=== PATIENT | female | born 1975 | race Caucasian/White ===

== ENCOUNTER 2022-06-09 18:11 | Inpatient (IN) ==
[2022-06-09] MEDS ORDERED: Melatonin 3 MG TABLET PO PRN (21:51)
[2022-06-09] MEDS ORDERED: Naloxone 0.4 MG/ML INJ IVP PRN (21:51)
[2022-06-09] MEDS ORDERED: Ondansetron 4 MG/2 ML VIAL IVP PRN (21:51)
[2022-06-09] MEDS ORDERED: *HR* LORazepam 2 MG/ML VIAL IVP PRN ×2 (21:53)
[2022-06-09] MEDS: Pantoprazole 40 MG in 0.9 % Sodium Chloride Mini Bag 100 ML IVC SCH (23:00)
[2022-06-09 23:12] LABS: Hematocrit 20.1 % (35.3-44.9); Hemoglobin 6.6 g/dL (11.5-15.4); Mean Corpuscular HGB Conc 32.8 g/dL (31.6-35.5); Mean Corpuscular Hemoglobin 30.8 pg (28.0-33.3); Mean Corpuscular Volume 93.9 fL (83.0-100.0); Platelet Count 270 K/mcL (140-400); Red Blood Count 2.14 M/mcL (3.82-4.97); Red Cell Distribution Width 16.9 % (11.5-14.5); White Blood Count 7.8 K/mcL (4.3-11.1)
[2022-06-09 23:36] LABS: Alanine Aminotransferase 13 Units/L (7-52); Albumin 2.5 g/dL (3.5-5.7); Albumin/Globulin Ratio 0.7 (1.1-2.2); Alkaline Phosphatase 146 Units/L (34-104); Aspartate Amino Transferase 55 Units/L (13-39); BUN/Creatinine Ratio 22 (6-26); Bilirubin,Direct 2.1 mg/dL (0.0-0.2); Bilirubin,Indirect 1.7 mg/dL (0.0-1.0); Bilirubin,Total 3.8 mg/dL (0.3-1.0); Blood Urea Nitrogen 10 mg/dL (6-20); Calcium 7.1 mg/dL (8.6-10.3); Carbon Dioxide 26 mEq/L (23-29); Chloride 87 mEq/L (98-107); Globulin 3.4 g/dL (2.4-3.5); Glucose 107 mg/dL (70-105); Magnesium 2.2 mg/dL (1.6-2.6); Osmolality,Calculated 274 (280-300); Phosphorous 1.9 mg/dL (2.7-4.5); Potassium 2.1 mEq/L (3.5-5.1); Sodium 132 mEq/L (136-145); Total Protein 5.9 g/dL (6.4-8.9); eGFR For African Americans > 60 (> 60); eGFR For Non-African Americans > 60 (> 60)
[2022-06-10] MEDS: 0.9 % Sodium Chloride w KCl 40 MEQ/1,000 ML MLS IVC SCH ×3 (00:49→16:44)
[2022-06-10] MEDS: Pantoprazole 40 MG in 0.9 % Sodium Chloride Mini Bag 100 ML IVC SCH (03:50)
[2022-06-10] MEDS ORDERED: Potassium Phosphate 44 MEQ in 0.9 % Sodium Chloride 250 ML IVPB ONE ×2 (04:19→08:06)
[2022-06-10] MEDS ORDERED: 0.9 % Sodium Chloride 250 ML IVC SCH (04:30)
[2022-06-10 06:38] LABS: Hemoglobin 6.7 g/dL (11.5-15.4); Immature Reticulocyte % 7.3 % (11.0-38.0); Mean Corpuscular HGB Conc 33.5 g/dL (31.6-35.5); Mean Corpuscular Volume 92.6 fL (83.0-100.0); Platelet Count 265 K/mcL (140-400); Red Blood Count 2.16 M/mcL (3.82-4.97); Red Cell Distribution Width 17.1 % (11.5-14.5); Retculocyte # 0.01 M/mcL (0.05-0.10); Reticulocyte % 0.5 % (1.6-2.8)
[2022-06-10 06:49] LABS: Alanine Aminotransferase 14 Units/L (7-52); Albumin 2.4 g/dL (3.5-5.7); Albumin/Globulin Ratio 0.8 (1.1-2.2); Alkaline Phosphatase 138 Units/L (34-104); Aspartate Amino Transferase 53 Units/L (13-39); BUN/Creatinine Ratio 20 (6-26); Bilirubin,Total 3.4 mg/dL (0.3-1.0); Blood Urea Nitrogen 9 mg/dL (6-20); Carbon Dioxide 27 mEq/L (23-29); Chloride 89 mEq/L (98-107); Globulin 3.1 g/dL (2.4-3.5); Glucose 95 mg/dL (70-105); Osmolality,Calculated 276 (280-300); Sodium 134 mEq/L (136-145); Total Protein 5.5 g/dL (6.4-8.9); eGFR For African Americans > 60 (> 60); eGFR For Non-African Americans > 60 (> 60)
[2022-06-10 07:30] LABS: Troponin I 0.05 ng/mL (< 0.04)
[2022-06-10] MEDS: *HR* LORazepam 2 MG/ML VIAL IVP PRN ×2 (08:57→16:43)
[2022-06-10] MEDS ORDERED: Potassium Phosphate 44 MEQ in 0.9 % Sodium Chloride 250 ML IVPB PRN (08:58)
[2022-06-10 09:52] LABS: Basophils % 0.3 %; Eosinophils # 0.1 K/mcL (0.0-0.6); Eosinophils % 0.7 %; Hematocrit 21.4 % (35.3-44.9); Hemoglobin 7.3 g/dL (11.5-15.4); Immature Granulocytes % 1.3 % (0-4); Lymphocytes # 1.3 K/mcL (0.6-4.6); Lymphocytes % 17.5 %; Mean Corpuscular HGB Conc 34.1 g/dL (31.6-35.5); Mean Corpuscular Hemoglobin 30.4 pg (28.0-33.3); Mean Corpuscular Volume 89.2 fL (83.0-100.0); Mean Platelet Volume 10.2 fL (9.4-12.4); Monocytes # 0.2 K/mcL (0.0-1.3); Neutrophils # 5.9 K/mcL (1.6-8.9); Nucleated Red Blood Cells 0.4 /100 WBC (0); Platelet Count 233 K/mcL (140-400); Red Cell Distribution Width 15.9 % (11.5-14.5); Segmented Neutrophils % 77.2 %; White Blood Count 7.6 K/mcL (4.3-11.1)
[2022-06-10 09:53] LABS: INR 1.1; Prothrombin Time 12.7 Seconds (9.4-12.1)
[2022-06-10 10:16] LABS: BUN/Creatinine Ratio 17 (6-26); Blood Urea Nitrogen 8 mg/dL (6-20); Calcium 6.7 mg/dL (8.6-10.3); Carbon Dioxide 27 mEq/L (23-29); Chloride 96 mEq/L (98-107); Glucose 96 mg/dL (70-105); Osmolality,Calculated 284 (280-300); Potassium 2.2 mEq/L (3.5-5.1); Sodium 138 mEq/L (136-145); eGFR For African Americans > 60 (> 60); eGFR For Non-African Americans > 60 (> 60)
[2022-06-10] MEDS: Azithromycin 500 MG in D5% in Water 250 ML IVPB SCH (10:35)
[2022-06-10 11:40] LABS: % Iron Saturation 91 % (15-50); Iron 163 mcg/dL (50-170); Transferrin 128 mg/dL (203-362)
[2022-06-10 11:41] LABS: Troponin I < 0.03 ng/mL (< 0.04)
[2022-06-10 14:10] LABS: Hepatitis B Surface Antigen Nonreactive (Nonreactive)
[2022-06-10 14:39] LABS: Hepatitis C Virus Antibody Nonreactive (Nonreactive)
[2022-06-10 14:40] LABS: Hepatitis B Core IgM Nonreactive (Nonreactive)
[2022-06-10 14:41] LABS: Hepatitis A Antibody IgM Nonreactive (Nonreactive)
[2022-06-10 15:11] LABS: Hematocrit 21.7 % (35.3-44.9); Hemoglobin 7.5 g/dL (11.5-15.4)
[2022-06-10 15:31] LABS: Potassium 2.6 mEq/L (3.5-5.1)
[2022-06-10 15:44] LABS: Magnesium 2.1 mg/dL (1.6-2.6); Phosphorous 2.9 mg/dL (2.7-4.5)
[2022-06-10 15:54] LABS: Potassium,Urine 47.2 mEq/L; Sodium, Urine 22.1 mEq/L
[2022-06-10 16:01] LABS: Bacteria,Urine Few per hpf (None-Few); Bilirubin,Urine Small (Negative); Blood,Urine Negative (Negative); Clarity,Urine Turbid (Clear); Color,Urine Dark-Yellow (Yellow); Glucose,Urine (UA) Normal (Normal); Ketones,Urine 150 mg/dL (Negative); Leukocyte Esterase,Urine Negative (Negative); Mucus,Urine Few per lpf (None-Few); Nitrite,Urine Negative (Negative); PH,Urine 6.5 pH Units (5.0-8.0); Protein,Urine 30 mg/dL (Neg-Trace); RBC,Urine 0-3 per hpf (0-3); Specific Gravity,Urine 1.022 (1.010-1.025); Squamous Epithelial Cell,Urine Few per hpf (None-Few); Urobilinogen,Urine >=8.0 mg/dL (Normal)
[2022-06-10] MEDS ORDERED: cefTRIAXone 1,000 MG in 0.9 % Sodium Chloride 10 ML IVP ONE ×2 (16:28→18:00)
[2022-06-10 16:40] LABS: ABG Base Excess 2 mEq/L (-2 to 3); ABG HCO3 25 mEq/L (21-27); ABG Oxygen Saturation 96 % (95-98); ABG PCO2 28 mmHg (35-45); ABG PH 7.55 pH Units (7.32-7.45); ABG PO2 69 mmHg (85-104); ABG TCO2 25 mEq/L (20-26)
[2022-06-10] MEDS: Thiamine (B-1) 100 MG, Folic Acid 1 MG, MVI, adult with vitamin K 10 ML in 0.9 % Sodi... IVPB SCH (17:21)
[2022-06-10] MEDS: Pantoprazole 40 MG VIAL IVP SCH (17:21)
[2022-06-10 17:31] LABS: Adenovirus Not Detected (Not Detect); Bordetella Pertussis Not Detected (Not Detect); Chlamydophila pneumoniae Not Detected (Not Detect); Coronavirus 229E Not Detected (Not Detect); Coronavirus HKU1 Not Detected (Not Detect); Coronavirus NL63 Not Detected (Not Detect); Coronavirus OC43 Not Detected (Not Detect); Human Metapneumovirus Not Detected (Not Detect); Human Rhinovirus/Enterovirus Not Detected (Not Detect); Influenza A Subtype 2009 H1 Not Detected (Not Detect); Influenza B Not Detected (Not Detect); Mycoplasma pneumoniae Not Detected (Not Detect); Parainfluenza Virus 1 Not Detected (Not Detect); Parainfluenza Virus 2 Not Detected (Not Detect); Parainfluenza Virus 3 Not Detected (Not Detect); Parainfluenza Virus 4 Not Detected (Not Detect); Respiratory Syncytial Virus Not Detected (Not Detect); SARS-CoV-2 Not Detected (Not Detect)
[2022-06-10 21:58] LABS: BUN/Creatinine Ratio 21 (6-26); Blood Urea Nitrogen 7 mg/dL (6-20); Calcium 6.2 mg/dL (8.6-10.3); Carbon Dioxide 26 mEq/L (23-29); Chloride 107 mEq/L (98-107); Glucose 95 mg/dL (70-105); Osmolality,Calculated 292 (280-300); Potassium 4.5 mEq/L (3.5-5.1); Sodium 142 mEq/L (136-145); eGFR For African Americans > 60 (> 60); eGFR For Non-African Americans > 60 (> 60)
[2022-06-11] MEDS ORDERED: 0.9 % Sodium Chloride 1,000 ML IVC SCH (00:15)
[2022-06-11 01:15] LABS: Basophils % 0.4 %; Eosinophils # 0.2 K/mcL (0.0-0.6); Eosinophils % 2.4 %; Hematocrit 23.1 % (35.3-44.9); Hemoglobin 7.8 g/dL (11.5-15.4); Immature Granulocytes % 2.2 % (0-4); Lymphocytes # 2.1 K/mcL (0.6-4.6); Mean Corpuscular HGB Conc 33.8 g/dL (31.6-35.5); Mean Corpuscular Hemoglobin 31.1 pg (28.0-33.3); Monocytes # 0.3 K/mcL (0.0-1.3); Monocytes % 4.8 %; Neutrophils # 3.9 K/mcL (1.6-8.9); Nucleated Red Blood Cells 0.3 /100 WBC (0); Platelet Count 189 K/mcL (140-400); Red Blood Count 2.51 M/mcL (3.82-4.97); Segmented Neutrophils % 58.2 %; White Blood Count 6.7 K/mcL (4.3-11.1)
[2022-06-11 01:37] LABS: BUN/Creatinine Ratio 18 (6-26); Blood Urea Nitrogen 7 mg/dL (6-20); Calcium 6.1 mg/dL (8.6-10.3); Carbon Dioxide 28 mEq/L (23-29); Chloride 107 mEq/L (98-107); Glucose 81 mg/dL (70-105); Osmolality,Calculated 289 (280-300); Phosphorous 2.1 mg/dL (2.7-4.5); Potassium 3.5 mEq/L (3.5-5.1); Sodium 141 mEq/L (136-145); eGFR For African Americans > 60 (> 60); eGFR For Non-African Americans > 60 (> 60)
[2022-06-11] MEDS: Azithromycin 500 MG in D5% in Water 250 ML IVPB SCH (05:30)
[2022-06-11] MEDS: *HR* LORazepam 2 MG/ML VIAL IVP PRN ×3 (06:10→16:43)
[2022-06-11] MEDS ORDERED: Morphine Sulfate 2 MG/ML SYRINGE IVP ONE (06:39)
[2022-06-11] MEDS ORDERED: Furosemide 20 MG/2 ML VIAL IVP ONE ×2 (06:44→08:06)
[2022-06-11] MEDS: Pantoprazole 40 MG VIAL IVP SCH ×2 (06:45→17:48)
[2022-06-11 07:54] LABS: ABG Base Excess 0 mEq/L (-2 to 3); ABG HCO3 24 mEq/L (21-27); ABG Oxygen Saturation 99 % (95-98); ABG PCO2 34 mmHg (35-45); ABG PH 7.46 pH Units (7.32-7.45); ABG PO2 132 mmHg (85-104); ABG TCO2 25 mEq/L (20-26); Blood Gas Modality NIV; Blood Gas VT 500 cc
[2022-06-11] MEDS: methylPREDNISolone 125 MG/2 ML VIAL IVP SCH (08:19)
[2022-06-11] MEDS ORDERED: Calcium Gluconate 1gm/50mL 1 GM/50 ML BAG IVPB ONE (08:44)
[2022-06-11 08:51] LABS: BUN/Creatinine Ratio 20 (6-26); Blood Urea Nitrogen 7 mg/dL (6-20); Calcium 6.5 mg/dL (8.6-10.3); Carbon Dioxide 26 mEq/L (23-29); Chloride 106 mEq/L (98-107); Glucose 76 mg/dL (70-105); Osmolality,Calculated 293 (280-300); Potassium 4.7 mEq/L (3.5-5.1); Sodium 143 mEq/L (136-145); eGFR For African Americans > 60 (> 60); eGFR For Non-African Americans > 60 (> 60)
[2022-06-11] MEDS: Piperacillin/Tazobactam 3.375 GM in 0.9 % Sodium Chloride Mini Bag 100 ML IVPB SCH ×2 (09:44→16:38)
[2022-06-11 12:33] LABS: Magnesium 1.8 mg/dL (1.6-2.6); Phosphorous 4.8 mg/dL (2.7-4.5)
[2022-06-11] MEDS ORDERED: Perflutren Lipid Microsphere 1.3 ML in 0.9 % Sodium Chloride 8.7 ML IVP PRN (13:40)
[2022-06-11] MEDS: Thiamine (B-1) 100 MG, Folic Acid 1 MG, MVI, adult with vitamin K 10 ML in 0.9 % Sodi... IVPB SCH (17:48)
[2022-06-12] MEDS ORDERED: D5% in Water 1,000 ML IVC PRN (00:54)
[2022-06-12] MEDS ORDERED: Dextrose Gel 15 GM/37.5 ML TUBE PO PRN ×2 (00:54)
[2022-06-12] MEDS: Piperacillin/Tazobactam 3.375 GM in 0.9 % Sodium Chloride Mini Bag 100 ML IVPB SCH ×3 (01:13→16:28)
[2022-06-12] MEDS: *HR* LORazepam 2 MG/ML VIAL IVP PRN ×4 (01:17→21:52)
[2022-06-12] MEDS: *HR* Dextrose 50 % in Water (Syg) 50 ML SYRINGE IVP PRN (01:19)
[2022-06-12] MEDS: Pantoprazole 40 MG VIAL IVP SCH ×2 (05:12→17:56)
[2022-06-12] MEDS: Azithromycin 500 MG in D5% in Water 250 ML IVPB SCH (05:12)
[2022-06-12] MEDS: methylPREDNISolone 125 MG/2 ML VIAL IVP SCH (08:34)
[2022-06-12 09:01] LABS: Basophils # 0.1 K/mcL (0.0-0.2); Basophils % 0.7 %; Eosinophils # 0.3 K/mcL (0.0-0.6); Hematocrit 21.3 % (35.3-44.9); Hemoglobin 7.1 g/dL (11.5-15.4); Immature Granulocytes % 3.8 % (0-4); Lymphocytes # 2.9 K/mcL (0.6-4.6); Lymphocytes % 26.6 %; Mean Corpuscular HGB Conc 33.3 g/dL (31.6-35.5); Mean Corpuscular Hemoglobin 30.9 pg (28.0-33.3); Mean Corpuscular Volume 92.6 fL (83.0-100.0); Mean Platelet Volume 10.6 fL (9.4-12.4); Monocytes # 0.5 K/mcL (0.0-1.3); Monocytes % 4.6 %; Neutrophils # 6.6 K/mcL (1.6-8.9); Nucleated Red Blood Cells 0.4 /100 WBC (0); Platelet Count 200 K/mcL (140-400); Red Cell Distribution Width 18.2 % (11.5-14.5); Segmented Neutrophils % 61.3 %
[2022-06-12 09:04] LABS: White Blood Count 10.8 K/mcL (4.3-11.1)
[2022-06-12 09:34] LABS: Alanine Aminotransferase 17 Units/L (7-52); Albumin 2.3 g/dL (3.5-5.7); Albumin/Globulin Ratio 0.8 (1.1-2.2); Alkaline Phosphatase 114 Units/L (34-104); Aspartate Amino Transferase 45 Units/L (13-39); BUN/Creatinine Ratio 12 (6-26); Bilirubin,Total 1.6 mg/dL (0.3-1.0); Blood Urea Nitrogen 5 mg/dL (6-20); Calcium 7.1 mg/dL (8.6-10.3); Carbon Dioxide 27 mEq/L (23-29); Chloride 107 mEq/L (98-107); Globulin 2.9 g/dL (2.4-3.5); Glucose 72 mg/dL (70-105); Osmolality,Calculated 298 (280-300); Potassium 3.4 mEq/L (3.5-5.1); Sodium 146 mEq/L (136-145); Total Protein 5.2 g/dL (6.4-8.9); eGFR For African Americans > 60 (> 60); eGFR For Non-African Americans > 60 (> 60)
[2022-06-12] MEDS: Ipratropium/Albuterol Neb 3 ML IH SCH ×3 (10:14→23:04)
[2022-06-12] MEDS ORDERED: Iopamidol - 370 500 ML MLS IVP ONE (10:40)
[2022-06-12] MEDS ORDERED: Furosemide 40 MG/4 ML VIAL IVP ONE (10:41)
[2022-06-12] MEDS ORDERED: Perflutren Lipid Microsphere 1.3 ML in 0.9 % Sodium Chloride 8.7 ML IVP PRN (12:20)
[2022-06-12 13:59] LABS: Phosphorous 1.8 mg/dL (2.7-4.5)
[2022-06-12 16:52] LABS: VBG Ionized Calcium 0.94 mmol/L (1.15-1.35)
[2022-06-12] MEDS: Thiamine (B-1) 100 MG, Folic Acid 1 MG, MVI, adult with vitamin K 10 ML in 0.9 % Sodi... IVPB SCH (17:56)
[2022-06-12] MEDS ORDERED: Calcium Gluconate 1gm/50mL 1 GM/50 ML BAG IVPB ONE (19:19)
[2022-06-13] MEDS: *HR* Dextrose 50 % in Water (Syg) 50 ML SYRINGE IVP PRN (00:57)
[2022-06-13] MEDS: Piperacillin/Tazobactam 3.375 GM in 0.9 % Sodium Chloride Mini Bag 100 ML IVPB SCH ×3 (00:58→17:19)
[2022-06-13] MEDS: *HR* LORazepam 2 MG/ML VIAL IVP PRN ×3 (02:42→10:53)
[2022-06-13] MEDS: Ipratropium/Albuterol Neb 3 ML IH SCH ×4 (03:46→21:13)
[2022-06-13] MEDS: Azithromycin 500 MG in D5% in Water 250 ML IVPB SCH (06:27)
[2022-06-13] MEDS: Pantoprazole 40 MG VIAL IVP SCH ×2 (06:27→17:14)
[2022-06-13 06:47] LABS: Basophils # 0.1 K/mcL (0.0-0.2); Basophils % 0.6 %; Eosinophils # 0.2 K/mcL (0.0-0.6); Eosinophils % 1.7 %; Hematocrit 22.5 % (35.3-44.9); Hemoglobin 7.2 g/dL (11.5-15.4); Immature Granulocytes % 4.7 % (0-4); Lymphocytes # 2.9 K/mcL (0.6-4.6); Lymphocytes % 28.2 %; Mean Corpuscular Hemoglobin 30.1 pg (28.0-33.3); Mean Corpuscular Volume 94.1 fL (83.0-100.0); Monocytes # 0.7 K/mcL (0.0-1.3); Monocytes % 7.3 %; Neutrophils # 5.8 K/mcL (1.6-8.9); Nucleated Red Blood Cells 1.1 /100 WBC (0); Platelet Count 221 K/mcL (140-400); Red Blood Count 2.39 M/mcL (3.82-4.97); Segmented Neutrophils % 57.5 %; White Blood Count 10.2 K/mcL (4.3-11.1)
[2022-06-13 06:55] LABS: INR 1.2; Prothrombin Time 13.8 Seconds (9.4-12.1)
[2022-06-13 08:31] LABS: Alanine Aminotransferase 17 Units/L (7-52); Albumin 2.5 g/dL (3.5-5.7); Albumin/Globulin Ratio 0.9 (1.1-2.2); Alkaline Phosphatase 103 Units/L (34-104); Aspartate Amino Transferase 37 Units/L (13-39); BUN/Creatinine Ratio 10 (6-26); Bilirubin,Total 1.5 mg/dL (0.3-1.0); Blood Urea Nitrogen 5 mg/dL (6-20); Calcium 7.9 mg/dL (8.6-10.3); Carbon Dioxide 29 mEq/L (23-29); Chloride 108 mEq/L (98-107); Globulin 2.8 g/dL (2.4-3.5); Glucose 80 mg/dL (70-105); Osmolality,Calculated 306 (280-300); Potassium 3.2 mEq/L (3.5-5.1); Sodium 150 mEq/L (136-145); Total Protein 5.3 g/dL (6.4-8.9); eGFR For African Americans > 60 (> 60); eGFR For Non-African Americans > 60 (> 60)
[2022-06-13] MEDS: Thiamine (B-1) 500 MG in 0.9 % Sodium Chloride 50 ML IVPB SCH ×3 (09:24→21:31)
[2022-06-13] MEDS: D5% in Water 1,000 ML IVC SCH (09:24)
[2022-06-13 09:31] LABS: Magnesium 1.6 mg/dL (1.6-2.6); Phosphorous 3.7 mg/dL (2.7-4.5)
[2022-06-13 10:02] LABS: ABG Base Excess 3 mEq/L (-2 to 3); ABG HCO3 25 mEq/L (21-27); ABG Oxygen Saturation 96 % (95-98); ABG PCO2 27 mmHg (35-45); ABG PH 7.58 pH Units (7.32-7.45); ABG PO2 69 mmHg (85-104); ABG TCO2 26 mEq/L (20-26)
[2022-06-13 11:52] LABS: Thyroid Stimulating Hormone 15.169 mcIU/mL (0.340-5.600)
[2022-06-13 13:25] LABS: Triiodothyronine (T3) Free 3.02 pg/mL (2.50-3.90)
[2022-06-13] MEDS ORDERED: Artificial Tears SOLN 15 ML BOTTLE BOTH EYES PRN (13:37)
[2022-06-13] MEDS ORDERED: *HR* Etomidate 20 MG/10 ML AMPUL IVP ONE (13:58)
[2022-06-13] MEDS ORDERED: *HR* Midazolam HCl 2 MG/2 ML VIAL IVP ONE (13:58)
[2022-06-13] MEDS ORDERED: *HR* Propofol 200 MG/20 ML VIAL IVP ONE (13:58)
[2022-06-13 14:12] LABS: Amorphous Sediment,Urine Few per hpf (None-Few); Bilirubin,Urine Small (Negative); Blood,Urine Trace (Negative); Clarity,Urine Ex.Turbid (Clear); Color,Urine Dark-Yellow (Yellow); Glucose,Urine (UA) Normal (Normal); Ketones,Urine 80 mg/dL (Negative); Leukocyte Esterase,Urine Moderate (Negative); Nitrite,Urine Negative (Negative); Protein,Urine 100 mg/dL (Neg-Trace); Specific Gravity,Urine > 1.030 (1.010-1.025)
[2022-06-13] MEDS: FentaNYL (PF) 1,000 MCG/100 ML IV.SOLN IVC SCH ×2 (14:58→21:55)
[2022-06-13] MEDS: Dexmedetomidine HCl 400 MCG/100 ML MLS IVC SCH (14:59)
[2022-06-13] MEDS: Artificial Tears SOLN 15 ML BOTTLE BOTH EYES SCH ×2 (15:54→21:33)
[2022-06-13 16:23] LABS: ABG Base Excess 6 mEq/L (-2 to 3); ABG HCO3 31 mEq/L (21-27); ABG Oxygen Saturation 100 % (95-98); ABG PCO2 50 mmHg (35-45); ABG PH 7.41 pH Units (7.32-7.45); ABG PO2 339 mmHg (85-104); ABG TCO2 33 mEq/L (20-26); Blood Gas Modality ASSIST CONTROL; Blood Gas VT 420 cc
[2022-06-13 16:55] LABS: VBG Ionized Calcium 0.92 mmol/L (1.15-1.35)
[2022-06-13] MEDS: Norepinephrine 4 MG/254 ML IV.SOLN IVC SCH (17:13)
[2022-06-13 17:14] LABS: Alanine Aminotransferase 14 Units/L (7-52); Albumin 2.3 g/dL (3.5-5.7); Albumin/Globulin Ratio 0.8 (1.1-2.2); Alkaline Phosphatase 92 Units/L (34-104); Aspartate Amino Transferase 33 Units/L (13-39); BUN/Creatinine Ratio 11 (6-26); Bilirubin,Total 1.4 mg/dL (0.3-1.0); Blood Urea Nitrogen 5 mg/dL (6-20); Calcium 7.5 mg/dL (8.6-10.3); Carbon Dioxide 29 mEq/L (23-29); Chloride 109 mEq/L (98-107); Globulin 2.8 g/dL (2.4-3.5); Glucose 122 mg/dL (70-105); Magnesium 1.6 mg/dL (1.6-2.6); Osmolality,Calculated 301 (280-300); Phosphorous 4.3 mg/dL (2.7-4.5); Potassium 3.2 mEq/L (3.5-5.1); Sodium 146 mEq/L (136-145); Total Protein 5.1 g/dL (6.4-8.9); eGFR For African Americans > 60 (> 60); eGFR For Non-African Americans > 60 (> 60)
[2022-06-13] MEDS: Chlorhexidine Rinse 15 ML MOUTHWASH MM SCH (21:31)
[2022-06-14] MEDS: Piperacillin/Tazobactam 3.375 GM in 0.9 % Sodium Chloride Mini Bag 100 ML IVPB SCH ×3 (00:59→16:10)
[2022-06-14] MEDS: D5% in Water 1,000 ML IVC SCH (00:59)
[2022-06-14] MEDS: Artificial Tears SOLN 15 ML BOTTLE BOTH EYES SCH ×6 (00:59→21:01)
[2022-06-14 03:00] LABS: Basophils # 0.1 K/mcL (0.0-0.2); Basophils % 0.8 %; Eosinophils # 0.3 K/mcL (0.0-0.6); Eosinophils % 2.7 %; Hematocrit 24.3 % (35.3-44.9); Hemoglobin 7.9 g/dL (11.5-15.4); Immature Granulocytes % 2.5 % (0-4); Immature Platelets 7.6 % (1.1-6.1); Lymphocytes % 16.2 %; Mean Corpuscular HGB Conc 32.5 g/dL (31.6-35.5); Mean Corpuscular Volume 95.3 fL (83.0-100.0); Mean Platelet Volume 10.7 fL (9.4-12.4); Monocytes # 0.8 K/mcL (0.0-1.3); Monocytes % 6.7 %; Neutrophils # 8.5 K/mcL (1.6-8.9); Nucleated Red Blood Cells 0.5 /100 WBC (0); Platelet Count 188 K/mcL (140-400); Red Blood Count 2.55 M/mcL (3.82-4.97); Red Cell Distribution Width 18.6 % (11.5-14.5); Segmented Neutrophils % 71.1 %
[2022-06-14 04:00] LABS: Alanine Aminotransferase 16 Units/L (7-52); Albumin 2.3 g/dL (3.5-5.7); Albumin/Globulin Ratio 0.7 (1.1-2.2); Alkaline Phosphatase 101 Units/L (34-104); Aspartate Amino Transferase 38 Units/L (13-39); BUN/Creatinine Ratio 7 (6-26); Bilirubin,Direct 0.3 mg/dL (0.0-0.2); Bilirubin,Indirect 1.1 mg/dL (0.0-1.0); Bilirubin,Total 1.4 mg/dL (0.3-1.0); Blood Urea Nitrogen 5 mg/dL (6-20); Calcium 7.6 mg/dL (8.6-10.3); Carbon Dioxide 28 mEq/L (23-29); Chloride 106 mEq/L (98-107); Globulin 3.1 g/dL (2.4-3.5); Glucose 123 mg/dL (70-105); Magnesium 1.5 mg/dL (1.6-2.6); Osmolality,Calculated 297 (280-300); Phosphorous 4.6 mg/dL (2.7-4.5); Potassium 3.9 mEq/L (3.5-5.1); Sodium 144 mEq/L (136-145); Total Protein 5.4 g/dL (6.4-8.9); eGFR For African Americans > 60 (> 60); eGFR For Non-African Americans > 60 (> 60)
[2022-06-14] MEDS: Dexmedetomidine HCl 400 MCG/100 ML MLS IVC SCH (04:18)
[2022-06-14] MEDS: Ipratropium/Albuterol Neb 3 ML IH SCH ×4 (04:35→22:48)
[2022-06-14 05:21] LABS: VBG Ionized Calcium 1.03 mmol/L (1.15-1.35)
[2022-06-14 05:28] LABS: ABG Base Excess 4 mEq/L (-2 to 3); ABG HCO3 28 mEq/L (21-27); ABG Oxygen Saturation 98 % (95-98); ABG PCO2 40 mmHg (35-45); ABG PH 7.45 pH Units (7.32-7.45); ABG PO2 93 mmHg (85-104); ABG TCO2 29 mEq/L (20-26); Blood Gas Modality ASSIST CONTROL; Blood Gas VT 420 cc
[2022-06-14] MEDS: Azithromycin 500 MG in D5% in Water 250 ML IVPB SCH (06:29)
[2022-06-14] MEDS: Pantoprazole 40 MG VIAL IVP SCH ×2 (06:29→16:09)
[2022-06-14] MEDS: Norepinephrine 4 MG/254 ML IV.SOLN IVC SCH (06:58)
[2022-06-14] MEDS: Chlorhexidine Rinse 15 ML MOUTHWASH MM SCH ×2 (08:00→21:02)
[2022-06-14 08:28] LABS: ANA IgG by ELISA NONE DETECTED (None Detected)
[2022-06-14] MEDS: Thiamine (B-1) 500 MG in 0.9 % Sodium Chloride 50 ML IVPB SCH ×3 (08:31→21:04)
[2022-06-14 08:36] LABS: Kappa Qnt Free Light Chains 33.08 mg/L (3.30-19.40); Lambda Qnt Free Light Chains 35.42 mg/L (5.71-26.30)
[2022-06-14] MEDS: Albumin 25% 25gram/100mL 25 GM/100 ML IV.SOLN IVPB SCH (16:09)
[2022-06-14] MEDS ORDERED: *HR* HYDROcodone/Acet 5/325 mg TABLET PO ONE (23:28)
[2022-06-15] MEDS: Piperacillin/Tazobactam 3.375 GM in 0.9 % Sodium Chloride Mini Bag 100 ML IVPB SCH ×3 (00:05→14:44)
[2022-06-15] MEDS: Albumin 25% 25gram/100mL 25 GM/100 ML IV.SOLN IVPB SCH ×3 (00:06→15:40)
[2022-06-15] MEDS: Artificial Tears SOLN 15 ML BOTTLE BOTH EYES SCH ×3 (00:08→07:23)
[2022-06-15] MEDS: Ipratropium/Albuterol Neb 3 ML IH SCH ×4 (03:43→22:54)
[2022-06-15 05:00] LABS: VBG Ionized Calcium 0.94 mmol/L (1.15-1.35)
[2022-06-15 05:09] LABS: Basophils # 0.1 K/mcL (0.0-0.2); Basophils % 0.6 %; Eosinophils # 0.3 K/mcL (0.0-0.6); Eosinophils % 3.3 %; Hematocrit 20.8 % (35.3-44.9); Hemoglobin 6.6 g/dL (11.5-15.4); Immature Granulocytes % 0.7 % (0-4); Lymphocytes # 1.2 K/mcL (0.6-4.6); Lymphocytes % 14.2 %; Mean Corpuscular HGB Conc 31.7 g/dL (31.6-35.5); Mean Corpuscular Hemoglobin 30.8 pg (28.0-33.3); Mean Corpuscular Volume 97.2 fL (83.0-100.0); Mean Platelet Volume 11.1 fL (9.4-12.4); Monocytes # 0.4 K/mcL (0.0-1.3); Monocytes % 4.9 %; Neutrophils # 6.5 K/mcL (1.6-8.9); Nucleated Red Blood Cells 0.2 /100 WBC (0); Platelet Count 133 K/mcL (140-400); Red Blood Count 2.14 M/mcL (3.82-4.97); Red Cell Distribution Width 18.8 % (11.5-14.5); Segmented Neutrophils % 76.3 %; White Blood Count 8.6 K/mcL (4.3-11.1)
[2022-06-15 05:28] LABS: Albumin 2.8 g/dL (3.5-5.7); Albumin/Globulin Ratio 1.2 (1.1-2.2); Bilirubin,Total 1.5 mg/dL (0.3-1.0); Calcium 8.1 mg/dL (8.6-10.3); Globulin 2.4 g/dL (2.4-3.5); Potassium 3.1 mEq/L (3.5-5.1); Total Protein 5.2 g/dL (6.4-8.9)
[2022-06-15 05:30] LABS: Albumin 2.9 g/dL (3.5-5.7); Albumin/Globulin Ratio 1.3 (1.1-2.2); Bilirubin,Direct 0.7 mg/dL (0.0-0.2); Bilirubin,Indirect 0.9 mg/dL (0.0-1.0); Bilirubin,Total 1.6 mg/dL (0.3-1.0); Globulin 2.2 g/dL (2.4-3.5); Magnesium 1.9 mg/dL (1.6-2.6); Phosphorous 5.1 mg/dL (2.7-4.5); Total Protein 5.1 g/dL (6.4-8.9)
[2022-06-15] MEDS: Pantoprazole 40 MG VIAL IVP SCH ×2 (05:31→17:32)
[2022-06-15] MEDS: Chlorhexidine Rinse 15 ML MOUTHWASH MM SCH (07:23)
[2022-06-15] MEDS: Thiamine (B-1) 500 MG in 0.9 % Sodium Chloride 50 ML IVPB SCH ×3 (07:26→20:04)
[2022-06-15 08:47] LABS: Hematocrit 21.6 % (35.3-44.9); Hemoglobin 6.8 g/dL (11.5-15.4); Mean Corpuscular HGB Conc 31.5 g/dL (31.6-35.5); Mean Corpuscular Hemoglobin 30.8 pg (28.0-33.3); Mean Corpuscular Volume 97.7 fL (83.0-100.0); Mean Platelet Volume 10.9 fL (9.4-12.4); Platelet Count 124 K/mcL (140-400); Red Blood Count 2.21 M/mcL (3.82-4.97); Red Cell Distribution Width 19.1 % (11.5-14.5); White Blood Count 8.4 K/mcL (4.3-11.1)
[2022-06-15] MEDS ORDERED: Benzonatate 100 MG CAPSULE PO PRN (08:55)
[2022-06-15] MEDS ORDERED: 0.9 % Sodium Chloride 500 ML ONE (09:15)
[2022-06-15 10:48] LABS: Alpha 2 Globulin (PEP) 0.75 g/dL (0.48-1.05); Beta Globulin (PEP) 0.85 g/dL (0.48-1.10)
[2022-06-15 10:57] LABS: IFE Reflexed NOT DONE
[2022-06-15] MEDS ORDERED: Furosemide 40 MG/4 ML VIAL IVP ONE (12:54)
[2022-06-15] MEDS ORDERED: Calcium Gluconate 1gm/50mL 1 GM/50 ML BAG IVPB PRN (12:56)
[2022-06-15] MEDS: Norepinephrine 4 MG/254 ML IV.SOLN IVC SCH (13:09)
[2022-06-15 14:41] LABS: Basophils # 0.1 K/mcL (0.0-0.2); Basophils % 0.6 %; Eosinophils # 0.3 K/mcL (0.0-0.6); Eosinophils % 2.8 %; Hemoglobin 8.8 g/dL (11.5-15.4); Immature Granulocytes % 0.9 % (0-4); Lymphocytes # 0.9 K/mcL (0.6-4.6); Lymphocytes % 8.3 %; Mean Corpuscular HGB Conc 32.6 g/dL (31.6-35.5); Mean Corpuscular Hemoglobin 30.9 pg (28.0-33.3); Mean Corpuscular Volume 94.7 fL (83.0-100.0); Mean Platelet Volume 11.6 fL (9.4-12.4); Monocytes # 0.5 K/mcL (0.0-1.3); Monocytes % 4.6 %; Neutrophils # 8.7 K/mcL (1.6-8.9); Nucleated Red Blood Cells 0.2 /100 WBC (0); Platelet Count 130 K/mcL (140-400); Red Blood Count 2.85 M/mcL (3.82-4.97); Red Cell Distribution Width 17.4 % (11.5-14.5); Segmented Neutrophils % 82.8 %; White Blood Count 10.5 K/mcL (4.3-11.1)
[2022-06-15 14:50] LABS: Calcium 8.4 mg/dL (8.6-10.3); Potassium 3.4 mEq/L (3.5-5.1)
[2022-06-15 14:51] LABS: Calcium 8.5 mg/dL (8.6-10.3); Potassium 3.5 mEq/L (3.5-5.1)
[2022-06-15 21:06] LABS: Magnesium 2.5 mg/dL (1.6-2.6)
[2022-06-16] MEDS ORDERED: Bumetanide 1 MG/4 ML VIAL IVP ONE (00:15)
[2022-06-16] MEDS: Piperacillin/Tazobactam 3.375 GM in 0.9 % Sodium Chloride Mini Bag 100 ML IVPB SCH ×3 (00:25→20:13)
[2022-06-16] MEDS: Albumin 25% 25gram/100mL 25 GM/100 ML IV.SOLN IVPB SCH ×3 (00:25→15:53)
[2022-06-16] MEDS: Ipratropium/Albuterol Neb 3 ML IH SCH ×4 (04:49→22:42)
[2022-06-16] MEDS: Pantoprazole 40 MG VIAL IVP SCH ×2 (05:22→18:14)
[2022-06-16 06:13] LABS: Bacteria,Urine Few per hpf (None-Few); Bilirubin,Urine Negative (Negative); Blood,Urine Trace (Negative); Clarity,Urine Clear (Clear); Color,Urine Light-Yellow (Yellow); Glucose,Urine (UA) Normal (Normal); Ketones,Urine Trace mg/dL (Negative); Leukocyte Esterase,Urine Negative (Negative); Mucus,Urine Few per lpf (None-Few); Nitrite,Urine Negative (Negative); Protein,Urine 30 mg/dL (Neg-Trace); RBC,Urine 0-3 per hpf (0-3); Squamous Epithelial Cell,Urine Few per hpf (None-Few); Urobilinogen,Urine Normal (Normal)
[2022-06-16 06:26] LABS: VBG Ionized Calcium 1.07 mmol/L (1.15-1.35)
[2022-06-16] MEDS: Thiamine (B-1) 500 MG in 0.9 % Sodium Chloride 50 ML IVPB SCH (08:04)
[2022-06-16 08:12] LABS: Albumin 3.8 g/dL (3.5-5.7); Bilirubin,Total 2.6 mg/dL (0.3-1.0); Calcium 9.2 mg/dL (8.6-10.3); Globulin 1.9 g/dL (2.4-3.5); Potassium 3.3 mEq/L (3.5-5.1); Total Protein 5.7 g/dL (6.4-8.9)
[2022-06-16 08:19] LABS: Albumin 3.8 g/dL (3.5-5.7); Albumin/Globulin Ratio 1.8 (1.1-2.2); Bilirubin,Direct 1.4 mg/dL (0.0-0.2); Bilirubin,Indirect 1.1 mg/dL (0.0-1.0); Bilirubin,Total 2.5 mg/dL (0.3-1.0); Globulin 2.1 g/dL (2.4-3.5); Magnesium 2.4 mg/dL (1.6-2.6); Phosphorous 4.5 mg/dL (2.7-4.5); Total Protein 5.9 g/dL (6.4-8.9)
[2022-06-16 09:10] LABS: Basophils # 0.1 K/mcL (0.0-0.2); Basophils % 0.6 %; Eosinophils # 0.2 K/mcL (0.0-0.6); Eosinophils % 1.7 %; Hematocrit 28.1 % (35.3-44.9); Hemoglobin 9.2 g/dL (11.5-15.4); Immature Granulocytes % 1.7 % (0-4); Lymphocytes # 0.9 K/mcL (0.6-4.6); Mean Corpuscular HGB Conc 32.7 g/dL (31.6-35.5); Mean Corpuscular Hemoglobin 31.1 pg (28.0-33.3); Mean Corpuscular Volume 94.9 fL (83.0-100.0); Mean Platelet Volume 11.3 fL (9.4-12.4); Monocytes # 0.5 K/mcL (0.0-1.3); Neutrophils # 10.8 K/mcL (1.6-8.9); Nucleated Red Blood Cells 0.2 /100 WBC (0); Platelet Count 138 K/mcL (140-400); Red Blood Count 2.96 M/mcL (3.82-4.97); White Blood Count 12.7 K/mcL (4.3-11.1)
[2022-06-16 09:28] LABS: Calcium 9.2 mg/dL (8.6-10.3); Potassium 3.4 mEq/L (3.5-5.1)
[2022-06-16] MEDS ORDERED: Lidocaine -MPF 1% 5 ML AMPUL INFILT ONE (12:09)
[2022-06-16] MEDS ORDERED: Potassium Chloride 40 MEQ/200 ML BAG IVPB PRN (12:16)
[2022-06-16] MEDS: Insulin LISPRO 300 UNITS/3 ML VIAL SUBQ SCH ×2 (12:28→15:53)
[2022-06-16] MEDS: Norepinephrine 4 MG/254 ML IV.SOLN IVC SCH (12:29)
[2022-06-16 13:32] LABS: Calcium 9.2 mg/dL (8.6-10.3); Potassium 3.4 mEq/L (3.5-5.1)
[2022-06-16] MEDS ORDERED: D10% in Water 500 ML IVC PRN (13:41)
[2022-06-16 13:57] LABS: Sodium, Urine 96.4 mEq/L
[2022-06-16] MEDS ORDERED: Clinimix E 5%-15% SOLUTION 2,000 ML with MVI, adult with vitamin K 10 ML IVC SCH (17:00)
[2022-06-16 18:51] LABS: VBG Ionized Calcium 1.13 mmol/L (1.15-1.35)
[2022-06-16 19:05] LABS: Calcium 9.5 mg/dL (8.6-10.3); Magnesium 3.1 mg/dL (1.6-2.6); Phosphorous 4.3 mg/dL (2.7-4.5); Potassium 3.9 mEq/L (3.5-5.1)
[2022-06-16] MEDS: Levalbuterol Neb 1.25 MG/3 ML IH SCH (22:57)
[2022-06-16 23:11] LABS: Uric Acid 6.1 mg/dL (2.3-7.6)
[2022-06-17] MEDS: Levalbuterol Neb 1.25 MG/3 ML IH SCH ×4 (03:58→22:37)
[2022-06-17] MEDS: Insulin LISPRO 300 UNITS/3 ML VIAL SUBQ SCH ×4 (05:56→16:26)
[2022-06-17 06:16] LABS: VBG Ionized Calcium 1.14 mmol/L (1.15-1.35)
[2022-06-17] MEDS: Pantoprazole 40 MG VIAL IVP SCH ×2 (06:37→16:37)
[2022-06-17] MEDS: Norepinephrine 4 MG/254 ML IV.SOLN IVC SCH (07:05)
[2022-06-17 07:38] LABS: Basophils # 0.1 K/mcL (0.0-0.2); Basophils % 0.5 %; Eosinophils # 0.3 K/mcL (0.0-0.6); Eosinophils % 2.2 %; Hematocrit 28.3 % (35.3-44.9); Hemoglobin 9.2 g/dL (11.5-15.4); Immature Granulocytes % 1.6 % (0-4); Lymphocytes % 8.3 %; Mean Corpuscular HGB Conc 32.5 g/dL (31.6-35.5); Mean Corpuscular Hemoglobin 31.3 pg (28.0-33.3); Mean Platelet Volume 11.2 fL (9.4-12.4); Monocytes # 0.4 K/mcL (0.0-1.3); Monocytes % 3.8 %; Neutrophils # 9.7 K/mcL (1.6-8.9); Platelet Count 157 K/mcL (140-400); Red Blood Count 2.94 M/mcL (3.82-4.97); Red Cell Distribution Width 19.7 % (11.5-14.5); Segmented Neutrophils % 83.6 %; White Blood Count 11.6 K/mcL (4.3-11.1)
[2022-06-17 07:44] LABS: Mean Corpuscular Volume 96.3 fL (83.0-100.0)
[2022-06-17] MEDS: Piperacillin/Tazobactam 3.375 GM in 0.9 % Sodium Chloride Mini Bag 100 ML IVPB SCH (07:45)
[2022-06-17] MEDS: *HR* Dextrose 50 % in Water (Syg) 50 ML SYRINGE IVP PRN ×2 (07:50→09:55)
[2022-06-17 09:36] LABS: Albumin 3.7 g/dL (3.5-5.7); Albumin/Globulin Ratio 1.8 (1.1-2.2); Bilirubin,Total 1.5 mg/dL (0.3-1.0); Calcium 9.2 mg/dL (8.6-10.3); Globulin 2.1 g/dL (2.4-3.5); Magnesium 2.8 mg/dL (1.6-2.6); Phosphorous 2.9 mg/dL (2.7-4.5); Total Protein 5.8 g/dL (6.4-8.9)
[2022-06-17] MEDS ORDERED: *HR* Labetalol 20 MG/4 ML SYRINGE IVP PRN (10:56)
[2022-06-17] MEDS ORDERED: D10% in Water 500 ML IVC SCH (11:00)
[2022-06-17] MEDS: D10% in Water 500 ML IVC SCH ×2 (11:00→23:51)
[2022-06-17 14:34] LABS: RBC,Pleural Fluid < 2000 RBC/mcL
[2022-06-17 14:34] LABS: RBC,Pleural Fluid < 2000 RBC/mcL
[2022-06-17 15:27] LABS: Glucose,Pleural Fluid 96 mg/dL (No Ref Range); LDH,Pleural Fluid 97 Units/L (No Ref Range); Total Protein,Pleural Fluid < 2.0 g/dL
[2022-06-17 15:32] LABS: Appearance of Pleural Fl Clear (Clear); Basophils,Pleural Fluid 0 %; Eosinophils,Pleural Fluid 0 %
[2022-06-17 15:35] LABS: Basophils,Pleural Fluid 0 %; Eosinophils,Pleural Fluid 0 %
[2022-06-17 15:36] LABS: Appearance of Pleural Fl Clear (Clear)
[2022-06-17] MEDS ORDERED: *HR* Heparin 5,000 UNIT/ML VIAL ONE (16:30)
[2022-06-17] MEDS: *HR* Heparin 5,000 UNIT/ML VIAL SQ SCH (16:37)
[2022-06-17] MEDS ORDERED: Clinimix E 5%-20% SOLUTION 2,000 ML with MVI, adult with vitamin K 10 ML IVC SCH (17:00)
[2022-06-17 18:05] LABS: Glucose,Pleural Fluid 96 mg/dL (No Ref Range); LDH,Pleural Fluid 90 Units/L (No Ref Range); Total Protein,Pleural Fluid < 2.0 g/dL
[2022-06-18 03:28] LABS: VBG Ionized Calcium 1.16 mmol/L (1.15-1.35)
[2022-06-18] MEDS: Levalbuterol Neb 1.25 MG/3 ML IH SCH ×4 (03:56→21:19)
[2022-06-18 03:57] LABS: Albumin 3.3 g/dL (3.5-5.7); Albumin/Globulin Ratio 1.6 (1.1-2.2); Bilirubin,Total 1.4 mg/dL (0.3-1.0); Calcium 8.9 mg/dL (8.6-10.3); Globulin 2.1 g/dL (2.4-3.5); Magnesium 2.4 mg/dL (1.6-2.6); Phosphorous 3.1 mg/dL (2.7-4.5); Potassium 3.3 mEq/L (3.5-5.1); Total Protein 5.4 g/dL (6.4-8.9)
[2022-06-18] MEDS: Pantoprazole 40 MG VIAL IVP SCH ×2 (06:01→22:33)
[2022-06-18] MEDS: *HR* Heparin 5,000 UNIT/ML VIAL SQ SCH ×2 (06:02→22:32)
[2022-06-18] MEDS ORDERED: *HR* LORazepam 2 MG/ML VIAL IVP ONE (08:28)
[2022-06-18] MEDS: Insulin LISPRO 300 UNITS/3 ML VIAL SUBQ SCH ×3 (08:41→17:50)
[2022-06-18] MEDS ORDERED: Furosemide 80 MG in 0.9 % Sodium Chloride 50 ML IVPB ONE (09:32)
[2022-06-18] MEDS ORDERED: Albumin 25% 12.5gm/50mL 12.5 GM/50 ML IV.SOLN IVPB ONE (09:33)
[2022-06-18] MEDS ORDERED: *HR* Heparin 10,000 UNIT/10 ML VIAL IV PRN (09:44)
[2022-06-18] MEDS ORDERED: 0.9 % Sodium Chloride 250 ML IVC PRN (09:44)
[2022-06-18] MEDS ORDERED: Albumin 25% 25gram/100mL 25 GM/100 ML IV.SOLN IVPB PRN (09:44)
[2022-06-18] MEDS ORDERED: 0.9 % Sodium Chloride 2,000 ML PRIME SCH (09:45)
[2022-06-18] MEDS: Dexmedetomidine HCl 400 MCG/100 ML MLS IVC SCH (12:32)
[2022-06-18] MEDS ORDERED: *HR* Heparin 5,000 UNIT/ML VIAL ONE (13:41)
[2022-06-18] MEDS ORDERED: Clinimix E 5%-20% SOLUTION 2,000 ML with MVI, adult with vitamin K 10 ML IVC SCH (17:00)
[2022-06-19] MEDS: Dexmedetomidine HCl 400 MCG/100 ML MLS IVC SCH ×3 (00:56→18:41)
[2022-06-19 02:27] LABS: Hemoglobin 7.9 g/dL (11.5-15.4)
[2022-06-19 02:29] LABS: Hematocrit 24.5 % (35.3-44.9); Immature Platelets 12.7 % (1.1-6.1); Mean Corpuscular HGB Conc 32.2 g/dL (31.6-35.5); Mean Corpuscular Hemoglobin 31.9 pg (28.0-33.3); Mean Corpuscular Volume 98.8 fL (83.0-100.0); Red Blood Count 2.48 M/mcL (3.82-4.97); White Blood Count 8.6 K/mcL (4.3-11.1)
[2022-06-19 02:31] LABS: VBG Ionized Calcium 1.24 mmol/L (1.15-1.35)
[2022-06-19 02:46] LABS: Albumin 3.4 g/dL (3.5-5.7); Albumin/Globulin Ratio 1.7 (1.1-2.2); Calcium 8.9 mg/dL (8.6-10.3); Magnesium 1.9 mg/dL (1.6-2.6); Phosphorous 3.5 mg/dL (2.7-4.5); Potassium 3.6 mEq/L (3.5-5.1); Total Protein 5.4 g/dL (6.4-8.9)
[2022-06-19] MEDS: Levalbuterol Neb 1.25 MG/3 ML IH SCH ×4 (04:15→21:43)
[2022-06-19] MEDS: Insulin LISPRO 300 UNITS/3 ML VIAL SUBQ SCH ×3 (08:04→17:47)
[2022-06-19] MEDS: *HR* Heparin 5,000 UNIT/ML VIAL SQ SCH ×3 (08:06→14:09)
[2022-06-19] MEDS: Pantoprazole 40 MG VIAL IVP SCH ×3 (08:07→14:09)
[2022-06-19] MEDS: *HR* HYDROcodone/Acet 5/325 mg TABLET PO PRN (09:59)
[2022-06-19] MEDS: *HR* LORazepam 2 MG/ML VIAL IVP PRN (15:56)
[2022-06-19] MEDS ORDERED: Clinimix E 5%-20% SOLUTION 2,000 ML with MVI, adult with vitamin K 10 ML IVC SCH (17:00)
[2022-06-19 18:12] LABS: Hepatitis B Surface Antibody 152.29 mIU/mL
[2022-06-19 18:23] LABS: Hepatitis B Surface Antigen Nonreactive (Nonreactive)
[2022-06-19] MEDS ORDERED: Insulin LISPRO 300 UNITS/3 ML VIAL SUBQ SCH (21:00)
[2022-06-20] MEDS: *HR* Heparin 5,000 UNIT/ML VIAL SQ SCH ×3 (00:19→12:47)
[2022-06-20] MEDS: Pantoprazole 40 MG VIAL IVP SCH ×2 (00:20→12:46)
[2022-06-20] MEDS: *HR* LORazepam 2 MG/ML VIAL IVP PRN ×3 (00:24→18:25)
[2022-06-20] MEDS: Insulin LISPRO 300 UNITS/3 ML VIAL SUBQ SCH ×6 (00:32→19:44)
[2022-06-20] MEDS: Dexmedetomidine HCl 400 MCG/100 ML MLS IVC SCH ×3 (03:07→19:52)
[2022-06-20 03:13] LABS: Hematocrit 25.9 % (35.3-44.9); Hemoglobin 8.1 g/dL (11.5-15.4); Mean Corpuscular HGB Conc 31.3 g/dL (31.6-35.5); Mean Corpuscular Volume 99.2 fL (83.0-100.0); Mean Platelet Volume 11.8 fL (9.4-12.4); Platelet Count 165 K/mcL (140-400); Red Blood Count 2.61 M/mcL (3.82-4.97); Red Cell Distribution Width 18.6 % (11.5-14.5)
[2022-06-20 03:21] LABS: VBG Ionized Calcium 1.26 mmol/L (1.15-1.35)
[2022-06-20 03:32] LABS: Magnesium 1.9 mg/dL (1.6-2.6); Phosphorous 4.5 mg/dL (2.7-4.5)
[2022-06-20 03:36] LABS: Albumin 3.3 g/dL (3.5-5.7); Albumin/Globulin Ratio 1.4 (1.1-2.2); Bilirubin,Total 0.8 mg/dL (0.3-1.0); Calcium 9.1 mg/dL (8.6-10.3); Globulin 2.4 g/dL (2.4-3.5); Potassium 3.3 mEq/L (3.5-5.1); Total Protein 5.7 g/dL (6.4-8.9)
[2022-06-20] MEDS: Levalbuterol Neb 1.25 MG/3 ML IH SCH ×4 (04:19→21:41)
[2022-06-20 07:42] LABS: Cholesterol,Body Fluid 12 mg/dL; Fluid Source for Cholesterol PLEURAL FLUID
[2022-06-20 07:42] LABS: Cholesterol,Body Fluid 14 mg/dL; Fluid Source for Cholesterol PLEURAL FLUID
[2022-06-20] MEDS ORDERED: Clinimix E 5%-20% SOLUTION 2,000 ML with MVI, adult with vitamin K 10 ML IVC SCH (17:00)
[2022-06-21] MEDS: *HR* LORazepam 2 MG/ML VIAL IVP PRN ×4 (01:13→23:46)
[2022-06-21] MEDS: Pantoprazole 40 MG VIAL IVP SCH ×3 (01:13→23:45)
[2022-06-21] MEDS: *HR* Heparin 5,000 UNIT/ML VIAL SQ SCH ×3 (02:18→23:45)
[2022-06-21] MEDS: Dexmedetomidine HCl 400 MCG/100 ML MLS IVC SCH ×3 (02:22→18:01)
[2022-06-21] MEDS: Insulin LISPRO 300 UNITS/3 ML VIAL SUBQ SCH ×7 (02:23→23:12)
[2022-06-21] MEDS: Levalbuterol Neb 1.25 MG/3 ML IH SCH ×4 (03:51→22:02)
[2022-06-21 05:32] LABS: Basophils # 0.1 K/mcL (0.0-0.2); Basophils % 0.5 %; Eosinophils # 0.3 K/mcL (0.0-0.6); Eosinophils % 3.3 %; Hematocrit 23.9 % (35.3-44.9); Hemoglobin 7.5 g/dL (11.5-15.4); Immature Granulocytes % 0.7 % (0-4); Lymphocytes # 1.9 K/mcL (0.6-4.6); Lymphocytes % 20.5 %; Mean Corpuscular HGB Conc 31.4 g/dL (31.6-35.5); Mean Corpuscular Hemoglobin 31.3 pg (28.0-33.3); Mean Corpuscular Volume 99.6 fL (83.0-100.0); Mean Platelet Volume 11.2 fL (9.4-12.4); Monocytes # 0.7 K/mcL (0.0-1.3); Monocytes % 7.2 %; Neutrophils # 6.2 K/mcL (1.6-8.9); Platelet Count 234 K/mcL (140-400); Red Cell Distribution Width 18.4 % (11.5-14.5); Segmented Neutrophils % 67.8 %; White Blood Count 9.1 K/mcL (4.3-11.1)
[2022-06-21 05:42] LABS: Albumin 3.1 g/dL (3.5-5.7); Albumin/Globulin Ratio 1.2 (1.1-2.2); Bilirubin,Total 0.7 mg/dL (0.3-1.0); Globulin 2.5 g/dL (2.4-3.5); Magnesium 1.7 mg/dL (1.6-2.6); Phosphorous 5.7 mg/dL (2.7-4.5); Potassium 3.5 mEq/L (3.5-5.1); Total Protein 5.6 g/dL (6.4-8.9)
[2022-06-21] MEDS ORDERED: E-Z-HD (BARIUM SULF) SUSPENSION PO ONE (12:54)
[2022-06-21] MEDS ORDERED: E-Z-PAQUE (BARIUM SULF) SUSP 1 BOTTLE PO ONE (12:54)
[2022-06-21] MEDS ORDERED: Clinimix 5%-20% SOLUTION 2,000 ML with MVI, adult with vitamin K 10 ML, Sodium Acetat... IVC SCH (17:00)
[2022-06-21] MEDS: *HR* HYDROcodone/Acet 5/325 mg TABLET PO PRN (21:02)
[2022-06-21] MEDS: QUEtiapine Fumarate 25 MG TABLET PO SCH (21:02)
[2022-06-22] MEDS ORDERED: *HR* LORazepam 2 MG/ML VIAL IVP ONE (03:35)
[2022-06-22] MEDS: Insulin LISPRO 300 UNITS/3 ML VIAL SUBQ SCH ×5 (03:36→20:26)
[2022-06-22 03:57] LABS: Basophils # 0.1 K/mcL (0.0-0.2); Basophils % 0.8 %; Eosinophils # 0.4 K/mcL (0.0-0.6); Eosinophils % 3.4 %; Hematocrit 25.1 % (35.3-44.9); Hemoglobin 7.9 g/dL (11.5-15.4); Immature Granulocytes % 0.8 % (0-4); Lymphocytes # 2.2 K/mcL (0.6-4.6); Lymphocytes % 20.8 %; Mean Corpuscular HGB Conc 31.5 g/dL (31.6-35.5); Mean Corpuscular Hemoglobin 31.2 pg (28.0-33.3); Mean Corpuscular Volume 99.2 fL (83.0-100.0); Mean Platelet Volume 10.8 fL (9.4-12.4); Monocytes # 0.7 K/mcL (0.0-1.3); Monocytes % 6.8 %; Neutrophils # 7.1 K/mcL (1.6-8.9); Platelet Count 287 K/mcL (140-400); Red Blood Count 2.53 M/mcL (3.82-4.97); Red Cell Distribution Width 18.6 % (11.5-14.5); Segmented Neutrophils % 67.4 %; White Blood Count 10.6 K/mcL (4.3-11.1)
[2022-06-22] MEDS: Levalbuterol Neb 1.25 MG/3 ML IH SCH ×4 (04:06→23:07)
[2022-06-22 04:21] LABS: Albumin 3.3 g/dL (3.5-5.7); Albumin/Globulin Ratio 1.2 (1.1-2.2); Bilirubin,Total 0.7 mg/dL (0.3-1.0); Calcium 9.1 mg/dL (8.6-10.3); Globulin 2.8 g/dL (2.4-3.5); Magnesium 1.7 mg/dL (1.6-2.6); Potassium 3.5 mEq/L (3.5-5.1); Total Protein 6.1 g/dL (6.4-8.9)
[2022-06-22] MEDS: Dexmedetomidine HCl 400 MCG/100 ML MLS IVC SCH (06:14)
[2022-06-22] MEDS: Thiamine (B-1) 100 MG in 0.9 % Sodium Chloride 50 ML IVPB SCH (07:50)
[2022-06-22] MEDS: *HR* LORazepam 2 MG/ML VIAL IVP PRN ×2 (08:46→15:26)
[2022-06-22] MEDS ORDERED: Furosemide 20 MG/2 ML VIAL IVP ONE (09:33)
[2022-06-22 10:04] LABS: ABG Base Excess 1 mEq/L (-2 to 3); ABG HCO3 25 mEq/L (21-27); ABG Oxygen Saturation 94 % (95-98); ABG PCO2 37 mmHg (35-45); ABG PH 7.44 pH Units (7.32-7.45); ABG PO2 67 mmHg (85-104); ABG TCO2 26 mEq/L (20-26)
[2022-06-22] MEDS ORDERED: Ipratropium/Albuterol Neb 3 ML IH PRN (10:14)
[2022-06-22] MEDS ORDERED: 0.9 % Sodium Chloride 250 ML IVC PRN (10:54)
[2022-06-22] MEDS ORDERED: *HR* Heparin 10,000 UNIT/10 ML VIAL IV PRN (11:09)
[2022-06-22] MEDS: Furosemide 40 MG/4 ML VIAL IVP SCH (11:59)
[2022-06-22] MEDS: *HR* Heparin 5,000 UNIT/ML VIAL SQ SCH (12:26)
[2022-06-22] MEDS: Pantoprazole 40 MG VIAL IVP SCH (12:27)
[2022-06-22] MEDS ORDERED: Clinimix 5%-20% SOLUTION 2,000 ML with MVI, adult with vitamin K 10 ML, Sodium Acetat... IVC SCH (17:00)
[2022-06-22] MEDS: QUEtiapine Fumarate 25 MG TABLET PO SCH (20:56)
[2022-06-23] MEDS: *HR* Heparin 5,000 UNIT/ML VIAL SQ SCH ×3 (00:09→23:56)
[2022-06-23] MEDS: Nystatin POWDER 30 GM BOTTLE TP SCH ×4 (00:09→19:48)
[2022-06-23] MEDS: Pantoprazole 40 MG VIAL IVP SCH ×3 (00:10→23:57)
[2022-06-23] MEDS: Insulin LISPRO 300 UNITS/3 ML VIAL SUBQ SCH ×7 (00:10→23:58)
[2022-06-23] MEDS: *HR* LORazepam 2 MG/ML VIAL IVP PRN ×2 (00:10→17:15)
[2022-06-23 02:10] LABS: Fluid Source for Albumin PLEURAL FLUID
[2022-06-23] MEDS: Levalbuterol Neb 1.25 MG/3 ML IH SCH ×4 (03:47→22:07)
[2022-06-23] MEDS: Dexmedetomidine HCl 400 MCG/100 ML MLS IVC SCH ×2 (04:43→18:49)
[2022-06-23 05:11] LABS: Basophils # 0.1 K/mcL (0.0-0.2); Basophils % 0.7 %; Eosinophils # 0.3 K/mcL (0.0-0.6); Hematocrit 23.6 % (35.3-44.9); Hemoglobin 7.4 g/dL (11.5-15.4); Lymphocytes % 21.5 %; Mean Corpuscular HGB Conc 31.4 g/dL (31.6-35.5); Mean Corpuscular Hemoglobin 31.5 pg (28.0-33.3); Mean Corpuscular Volume 100.4 fL (83.0-100.0); Mean Platelet Volume 11.2 fL (9.4-12.4); Monocytes # 0.8 K/mcL (0.0-1.3); Monocytes % 8.2 %; Neutrophils # 6.2 K/mcL (1.6-8.9); Platelet Count 142 K/mcL (140-400); Red Blood Count 2.35 M/mcL (3.82-4.97); Red Cell Distribution Width 18.4 % (11.5-14.5); Segmented Neutrophils % 65.6 %; White Blood Count 9.4 K/mcL (4.3-11.1)
[2022-06-23 05:28] LABS: Albumin 3.3 g/dL (3.5-5.7); Albumin/Globulin Ratio 1.2 (1.1-2.2); Bilirubin,Total 0.6 mg/dL (0.3-1.0); Calcium 9.4 mg/dL (8.6-10.3); Globulin 2.7 g/dL (2.4-3.5); Magnesium 1.6 mg/dL (1.6-2.6); Phosphorous 2.2 mg/dL (2.7-4.5); Potassium 3.4 mEq/L (3.5-5.1)
[2022-06-23] MEDS: Furosemide 40 MG/4 ML VIAL IVP SCH (08:52)
[2022-06-23] MEDS: Thiamine (B-1) 100 MG in 0.9 % Sodium Chloride 50 ML IVPB SCH (08:57)
[2022-06-23] MEDS ORDERED: Potassium Phosphate 44 MEQ in 0.9 % Sodium Chloride 250 ML IVPB ONE (10:34)
[2022-06-23] MEDS ORDERED: Clinimix E 5%-15% SOLUTION 2,000 ML with MVI, adult with vitamin K 10 ML IVC SCH (17:00)
[2022-06-23] MEDS: QUEtiapine Fumarate 25 MG TABLET PO SCH (19:48)
[2022-06-24] MEDS: Levalbuterol Neb 1.25 MG/3 ML IH SCH ×2 (03:58→10:32)
[2022-06-24 05:17] LABS: Albumin 3.2 g/dL (3.5-5.7); Albumin/Globulin Ratio 1.1 (1.1-2.2); Bilirubin,Total 0.6 mg/dL (0.3-1.0); Calcium 9.3 mg/dL (8.6-10.3); Magnesium 1.6 mg/dL (1.6-2.6); Phosphorous 4.6 mg/dL (2.7-4.5); Potassium 3.7 mEq/L (3.5-5.1); Total Protein 6.2 g/dL (6.4-8.9)
[2022-06-24] MEDS: *HR* LORazepam 2 MG/ML VIAL IVP PRN (05:35)
[2022-06-24] MEDS: Dexmedetomidine HCl 400 MCG/100 ML MLS IVC SCH (05:35)
[2022-06-24] MEDS: Insulin LISPRO 300 UNITS/3 ML VIAL SUBQ SCH ×5 (05:42→19:59)
[2022-06-24] MEDS: Furosemide 40 MG/4 ML VIAL IVP SCH (08:49)
[2022-06-24] MEDS: Thiamine (B-1) 100 MG in 0.9 % Sodium Chloride 50 ML IVPB SCH (08:49)
[2022-06-24] MEDS: Nystatin POWDER 30 GM BOTTLE TP SCH ×3 (08:50→19:59)
[2022-06-24 11:39] LABS: Basophils # 0.1 K/mcL (0.0-0.2); Basophils % 1.1 %; Eosinophils # 0.3 K/mcL (0.0-0.6); Hematocrit 23.7 % (35.3-44.9); Hemoglobin 7.3 g/dL (11.5-15.4); Lymphocytes # 1.7 K/mcL (0.6-4.6); Lymphocytes % 21.5 %; Mean Corpuscular HGB Conc 30.8 g/dL (31.6-35.5); Mean Corpuscular Hemoglobin 30.9 pg (28.0-33.3); Mean Corpuscular Volume 100.4 fL (83.0-100.0); Mean Platelet Volume 10.7 fL (9.4-12.4); Monocytes # 0.8 K/mcL (0.0-1.3); Monocytes % 9.9 %; Platelet Count 208 K/mcL (140-400); Red Blood Count 2.36 M/mcL (3.82-4.97); Red Cell Distribution Width 18.5 % (11.5-14.5); Segmented Neutrophils % 62.5 %
[2022-06-24] MEDS: *HR* Heparin 5,000 UNIT/ML VIAL SQ SCH (13:02)
[2022-06-24] MEDS: Pantoprazole 40 MG VIAL IVP SCH (13:03)
[2022-06-24] MEDS: Ipratropium/Albuterol Neb 3 ML IH SCH ×4 (15:24→23:05)
[2022-06-24] MEDS: diazePAM 5 MG TABLET PO PRN (15:50)
[2022-06-24] MEDS: *HR* Metoprolol 5 MG/5 ML VIAL IVP PRN ×2 (15:50→20:48)
[2022-06-24] MEDS ORDERED: Clinimix 5%-20% SOLUTION 2,000 ML with MVI, adult with vitamin K 10 ML, Sodium Acetat... IVC SCH (17:00)
[2022-06-24] MEDS: *HR* HYDROcodone/Acet 5/325 mg TABLET PO PRN (17:35)
[2022-06-24] MEDS: QUEtiapine Fumarate 25 MG TABLET PO SCH (19:58)
[2022-06-24] MEDS ORDERED: diazePAM 10 MG/2 ML SYRINGE IVP ONE (20:33)
[2022-06-25] MEDS: *HR* Heparin 5,000 UNIT/ML VIAL SQ SCH ×2 (00:07→12:15)
[2022-06-25] MEDS: Pantoprazole 40 MG VIAL IVP SCH ×2 (00:08→12:02)
[2022-06-25] MEDS: *HR* HYDROcodone/Acet 5/325 mg TABLET PO PRN (00:08)
[2022-06-25] MEDS: Insulin LISPRO 300 UNITS/3 ML VIAL SUBQ SCH ×6 (00:21→20:26)
[2022-06-25] MEDS: Ipratropium/Albuterol Neb 3 ML IH SCH ×5 (03:43→20:39)
[2022-06-25 05:19] LABS: Basophils # 0.1 K/mcL (0.0-0.2); Basophils % 1.3 %; Eosinophils # 0.3 K/mcL (0.0-0.6); Eosinophils % 3.3 %; Hematocrit 24.3 % (35.3-44.9); Hemoglobin 7.3 g/dL (11.5-15.4); Lymphocytes # 1.6 K/mcL (0.6-4.6); Lymphocytes % 19.1 %; Mean Corpuscular Hemoglobin 30.5 pg (28.0-33.3); Mean Corpuscular Volume 101.7 fL (83.0-100.0); Monocytes # 0.9 K/mcL (0.0-1.3); Monocytes % 10.6 %; Neutrophils # 5.4 K/mcL (1.6-8.9); Platelet Count 247 K/mcL (140-400); Red Blood Count 2.39 M/mcL (3.82-4.97); Red Cell Distribution Width 18.2 % (11.5-14.5); Segmented Neutrophils % 64.7 %; White Blood Count 8.4 K/mcL (4.3-11.1)
[2022-06-25 05:20] LABS: Albumin 3.4 g/dL (3.5-5.7); Albumin/Globulin Ratio 1.3 (1.1-2.2); Bilirubin,Total 0.6 mg/dL (0.3-1.0); Calcium 9.1 mg/dL (8.6-10.3); Globulin 2.7 g/dL (2.4-3.5); Magnesium 1.6 mg/dL (1.6-2.6); Phosphorous 5.5 mg/dL (2.7-4.5); Potassium 3.5 mEq/L (3.5-5.1); Total Protein 6.1 g/dL (6.4-8.9)
[2022-06-25] MEDS ORDERED: Albumin 25% 25gram/100mL 25 GM/100 ML IV.SOLN IVPB ONE (09:01)
[2022-06-25] MEDS: Nystatin POWDER 30 GM BOTTLE TP SCH ×3 (09:22→20:16)
[2022-06-25] MEDS: Thiamine (B-1) 100 MG in 0.9 % Sodium Chloride 50 ML IVPB SCH (09:34)
[2022-06-25] MEDS: *HR* Metoprolol 5 MG/5 ML VIAL IVP PRN (12:06)
[2022-06-25] MEDS: Furosemide 40 MG/4 ML VIAL IVP SCH (12:07)
[2022-06-25] MEDS ORDERED: Clinimix 5%-20% SOLUTION 2,000 ML with MVI, adult with vitamin K 10 ML, Sodium Acetat... IVC SCH (17:00)
[2022-06-25] MEDS: Fat Emulsion 250 ML IVPB SCH (18:03)
[2022-06-25] MEDS: QUEtiapine Fumarate 25 MG TABLET PO SCH (20:14)
[2022-06-26] MEDS: Ipratropium/Albuterol Neb 3 ML IH SCH ×5 (00:18→15:21)
[2022-06-26] MEDS: Insulin LISPRO 300 UNITS/3 ML VIAL SUBQ SCH ×7 (00:22→23:51)
[2022-06-26] MEDS: *HR* Heparin 5,000 UNIT/ML VIAL SQ SCH ×3 (00:36→23:22)
[2022-06-26] MEDS: Pantoprazole 40 MG VIAL IVP SCH ×3 (01:21→23:23)
[2022-06-26 04:13] LABS: Basophils # 0.1 K/mcL (0.0-0.2); Basophils % 1.2 %; Eosinophils # 0.3 K/mcL (0.0-0.6); Eosinophils % 3.5 %; Hematocrit 23.7 % (35.3-44.9); Hemoglobin 7.4 g/dL (11.5-15.4); Immature Granulocytes % 1.6 % (0-4); Lymphocytes # 1.6 K/mcL (0.6-4.6); Lymphocytes % 17.3 %; Mean Corpuscular HGB Conc 31.2 g/dL (31.6-35.5); Mean Corpuscular Hemoglobin 31.6 pg (28.0-33.3); Mean Corpuscular Volume 101.3 fL (83.0-100.0); Mean Platelet Volume 10.5 fL (9.4-12.4); Monocytes # 0.9 K/mcL (0.0-1.3); Monocytes % 9.2 %; Neutrophils # 6.3 K/mcL (1.6-8.9); Platelet Count 290 K/mcL (140-400); Red Blood Count 2.34 M/mcL (3.82-4.97); Red Cell Distribution Width 18.1 % (11.5-14.5); Segmented Neutrophils % 67.2 %; White Blood Count 9.4 K/mcL (4.3-11.1)
[2022-06-26 04:21] LABS: Albumin 3.6 g/dL (3.5-5.7); Albumin/Globulin Ratio 1.4 (1.1-2.2); Bilirubin,Total 0.6 mg/dL (0.3-1.0); Calcium 9.2 mg/dL (8.6-10.3); Globulin 2.6 g/dL (2.4-3.5); Magnesium 1.6 mg/dL (1.6-2.6); Phosphorous 3.8 mg/dL (2.7-4.5); Potassium 3.1 mEq/L (3.5-5.1); Total Protein 6.2 g/dL (6.4-8.9)
[2022-06-26] MEDS: Furosemide 40 MG/4 ML VIAL IVP SCH ×4 (07:43→20:34)
[2022-06-26] MEDS: Nystatin POWDER 30 GM BOTTLE TP SCH ×3 (08:19→21:29)
[2022-06-26] MEDS: Thiamine (B-1) 100 MG in 0.9 % Sodium Chloride 50 ML IVPB SCH (08:23)
[2022-06-26] MEDS ORDERED: Furosemide 20 MG/2 ML VIAL IVP STA (08:37)
[2022-06-26] MEDS: *HR* Metoprolol 5 MG/5 ML VIAL IVP PRN (12:49)
[2022-06-26] MEDS: diazePAM 5 MG TABLET PO PRN ×2 (16:21→23:29)
[2022-06-26] MEDS ORDERED: Clinimix 5%-20% SOLUTION 2,000 ML with MVI, adult with vitamin K 10 ML, Sodium Acetat... IVC SCH (17:00)
[2022-06-26] MEDS ORDERED: *HR* Metoprolol 5 MG/5 ML VIAL IVP ONE (17:35)
[2022-06-26] MEDS: *HR* HYDROcodone/Acet 5/325 mg TABLET PO PRN (18:12)
[2022-06-26] MEDS: QUEtiapine Fumarate 25 MG TABLET PO SCH (20:33)
[2022-06-26] MEDS: Ipratropium Neb 0.5 MG NEBULIZER IH SCH (21:59)
[2022-06-27 03:15] LABS: Hematocrit 23.9 % (35.3-44.9); Hemoglobin 7.4 g/dL (11.5-15.4); Mean Corpuscular Hemoglobin 31.1 pg (28.0-33.3); Mean Corpuscular Volume 100.4 fL (83.0-100.0); Mean Platelet Volume 10.3 fL (9.4-12.4); Platelet Count 321 K/mcL (140-400); Red Blood Count 2.38 M/mcL (3.82-4.97); Red Cell Distribution Width 18.2 % (11.5-14.5); White Blood Count 8.9 K/mcL (4.3-11.1)
[2022-06-27 03:38] LABS: Albumin 3.6 g/dL (3.5-5.7); Albumin/Globulin Ratio 1.2 (1.1-2.2); Bilirubin,Total 0.7 mg/dL (0.3-1.0); Calcium 9.3 mg/dL (8.6-10.3); Magnesium 1.9 mg/dL (1.6-2.6); Phosphorous 4.1 mg/dL (2.7-4.5); Potassium 3.2 mEq/L (3.5-5.1); Total Protein 6.6 g/dL (6.4-8.9)
[2022-06-27] MEDS: Ipratropium Neb 0.5 MG NEBULIZER IH SCH ×4 (04:39→22:14)
[2022-06-27] MEDS: Insulin LISPRO 300 UNITS/3 ML VIAL SUBQ SCH ×5 (06:17→21:01)
[2022-06-27] MEDS: diazePAM 5 MG TABLET PO PRN (08:25)
[2022-06-27] MEDS: *HR* HYDROcodone/Acet 5/325 mg TABLET PO PRN (08:26)
[2022-06-27] MEDS: Thiamine (B-1) 100 MG in 0.9 % Sodium Chloride 50 ML IVPB SCH (08:40)
[2022-06-27] MEDS: Furosemide 40 MG/4 ML VIAL IVP SCH ×2 (08:46→21:11)
[2022-06-27] MEDS: *HR* Metoprolol 5 MG/5 ML VIAL IVP PRN (08:49)
[2022-06-27] MEDS: Nystatin POWDER 30 GM BOTTLE TP SCH ×3 (12:34→21:10)
[2022-06-27] MEDS: *HR* Heparin 5,000 UNIT/ML VIAL SQ SCH (14:47)
[2022-06-27] MEDS: Pantoprazole 40 MG VIAL IVP SCH (14:47)
[2022-06-27 15:17] LABS: Basophils # 0.2 K/mcL (0.0-0.2); Basophils % 1.5 %; Eosinophils # 0.4 K/mcL (0.0-0.6); Eosinophils % 3.4 %; Hematocrit 27.5 % (35.3-44.9); Hemoglobin 8.6 g/dL (11.5-15.4); Immature Granulocytes % 0.9 % (0-4); Lymphocytes # 1.6 K/mcL (0.6-4.6); Lymphocytes % 13.4 %; Mean Corpuscular HGB Conc 31.3 g/dL (31.6-35.5); Mean Corpuscular Hemoglobin 31.7 pg (28.0-33.3); Mean Corpuscular Volume 101.5 fL (83.0-100.0); Mean Platelet Volume 10.4 fL (9.4-12.4); Monocytes # 0.7 K/mcL (0.0-1.3); Monocytes % 6.1 %; Neutrophils # 8.7 K/mcL (1.6-8.9); Platelet Count 369 K/mcL (140-400); Red Blood Count 2.71 M/mcL (3.82-4.97); Red Cell Distribution Width 18.3 % (11.5-14.5); Segmented Neutrophils % 74.7 %; White Blood Count 11.6 K/mcL (4.3-11.1)
[2022-06-27 15:37] LABS: BUN/Creatinine Ratio 17 (6-26); Blood Urea Nitrogen 35 mg/dL (6-20); Calcium 9.5 mg/dL (8.6-10.3); Carbon Dioxide 29 mEq/L (23-29); Chloride 98 mEq/L (98-107); Glucose 109 mg/dL (70-105); Osmolality,Calculated 295 (280-300); Potassium 3.8 mEq/L (3.5-5.1); Sodium 138 mEq/L (136-145); Troponin I < 0.03 ng/mL (< 0.04); eGFR For African Americans 30 (> 60); eGFR For Non-African Americans 25 (> 60)
[2022-06-27 15:46] LABS: ABG Base Excess 3 mEq/L (-2 to 3); ABG HCO3 28 mEq/L (21-27); ABG Oxygen Saturation 98 % (95-98); ABG PCO2 41 mmHg (35-45); ABG PH 7.44 pH Units (7.32-7.45); ABG PO2 104 mmHg (85-104); ABG TCO2 29 mEq/L (20-26); Blood Gas Modality S/T; Blood Gas Pressure Support 6 cm H2O
[2022-06-27] MEDS ORDERED: Furosemide 40 MG/4 ML VIAL IVP STA (15:54)
[2022-06-27] MEDS ORDERED: Clinimix 5%-20% SOLUTION 2,000 ML with MVI, adult with vitamin K 10 ML, Sodium Acetat... IVC SCH (17:00)
[2022-06-27] MEDS: QUEtiapine Fumarate 25 MG TABLET PO SCH (21:10)
[2022-06-28] MEDS: Insulin LISPRO 300 UNITS/3 ML VIAL SUBQ SCH ×6 (00:20→23:04)
[2022-06-28] MEDS: Pantoprazole 40 MG VIAL IVP SCH ×3 (00:22→23:00)
[2022-06-28] MEDS: *HR* Heparin 5,000 UNIT/ML VIAL SQ SCH ×3 (00:23→23:00)
[2022-06-28] MEDS: Ipratropium Neb 0.5 MG NEBULIZER IH SCH ×4 (04:02→22:15)
[2022-06-28 06:02] LABS: Hematocrit 26.1 % (35.3-44.9); Hemoglobin 8.1 g/dL (11.5-15.4); Mean Corpuscular Hemoglobin 30.9 pg (28.0-33.3); Mean Corpuscular Volume 99.6 fL (83.0-100.0); Mean Platelet Volume 10.2 fL (9.4-12.4); Platelet Count 383 K/mcL (140-400); Red Blood Count 2.62 M/mcL (3.82-4.97); Red Cell Distribution Width 17.5 % (11.5-14.5); White Blood Count 10.5 K/mcL (4.3-11.1)
[2022-06-28 06:40] LABS: Albumin 3.9 g/dL (3.5-5.7); Albumin/Globulin Ratio 1.2 (1.1-2.2); Bilirubin,Total 0.8 mg/dL (0.3-1.0); Calcium 9.8 mg/dL (8.6-10.3); Globulin 3.3 g/dL (2.4-3.5); Magnesium 1.7 mg/dL (1.6-2.6); Phosphorous 5.3 mg/dL (2.7-4.5); Potassium 3.1 mEq/L (3.5-5.1); Total Protein 7.2 g/dL (6.4-8.9)
[2022-06-28] MEDS: Furosemide 40 MG/4 ML VIAL IVP SCH ×2 (08:42→20:48)
[2022-06-28] MEDS: diazePAM 5 MG TABLET PO PRN (08:42)
[2022-06-28] MEDS: Thiamine (B-1) 100 MG in 0.9 % Sodium Chloride 50 ML IVPB SCH (08:42)
[2022-06-28] MEDS: Nystatin POWDER 30 GM BOTTLE TP SCH ×3 (08:43→20:48)
[2022-06-28] MEDS: *HR* Metoprolol 5 MG/5 ML VIAL IVP PRN (09:32)
[2022-06-28 15:01] LABS: RBC,Pleural Fluid < 2000 RBC/mcL
[2022-06-28 15:27] LABS: Total Protein,Pleural Fluid 2.8 g/dL
[2022-06-28 16:15] LABS: Appearance of Pleural Fl Clear (Clear)
[2022-06-28] MEDS: *HR* HYDROcodone/Acet 5/325 mg TABLET PO PRN (16:17)
[2022-06-28] MEDS: Fat Emulsion 250 ML IVPB SCH (16:17)
[2022-06-28 16:21] LABS: Eosinophils,Pleural Fluid 0 %
[2022-06-28] MEDS ORDERED: Clinimix 5%-20% SOLUTION 2,000 ML with MVI, adult with vitamin K 10 ML, Sodium Acetat... IVC SCH (17:00)
[2022-06-28] MEDS: QUEtiapine Fumarate 25 MG TABLET PO SCH (20:48)
[2022-06-28] MEDS ORDERED: Insulin LISPRO 300 UNITS/3 ML VIAL SUBQ SCH (21:00)
[2022-06-29] MEDS: Insulin LISPRO 300 UNITS/3 ML VIAL SUBQ SCH ×5 (03:49→21:07)
[2022-06-29] MEDS: Ipratropium Neb 0.5 MG NEBULIZER IH SCH ×4 (03:52→22:26)
[2022-06-29 04:28] LABS: Hematocrit 25.3 % (35.3-44.9); Hemoglobin 8.2 g/dL (11.5-15.4); Mean Corpuscular HGB Conc 32.4 g/dL (31.6-35.5); Mean Corpuscular Hemoglobin 31.8 pg (28.0-33.3); Mean Corpuscular Volume 98.1 fL (83.0-100.0); Mean Platelet Volume 10.5 fL (9.4-12.4); Platelet Count 438 K/mcL (140-400); Red Blood Count 2.58 M/mcL (3.82-4.97); Red Cell Distribution Width 16.8 % (11.5-14.5); White Blood Count 12.1 K/mcL (4.3-11.1)
[2022-06-29 04:50] LABS: Albumin 3.7 g/dL (3.5-5.7); Albumin/Globulin Ratio 1.2 (1.1-2.2); Bilirubin,Total 0.6 mg/dL (0.3-1.0); Calcium 9.3 mg/dL (8.6-10.3); Globulin 3.2 g/dL (2.4-3.5); Magnesium 1.5 mg/dL (1.6-2.6); Phosphorous 4.3 mg/dL (2.7-4.5); Potassium 2.9 mEq/L (3.5-5.1); Total Protein 6.9 g/dL (6.4-8.9)
[2022-06-29] MEDS: Thiamine (B-1) 100 MG in 0.9 % Sodium Chloride 50 ML IVPB SCH (07:35)
[2022-06-29] MEDS: Furosemide 40 MG/4 ML VIAL IVP SCH ×2 (07:36→21:07)
[2022-06-29] MEDS: *HR* HYDROcodone/Acet 5/325 mg TABLET PO PRN ×2 (07:36→23:19)
[2022-06-29] MEDS: Nystatin POWDER 30 GM BOTTLE TP SCH ×3 (07:36→21:08)
[2022-06-29] MEDS: Nicotine 21 MG PATCH.TD24 TD PRN (07:38)
[2022-06-29] MEDS: *HR* Heparin 5,000 UNIT/ML VIAL SQ SCH ×2 (11:46→23:19)
[2022-06-29] MEDS: Pantoprazole 40 MG VIAL IVP SCH ×2 (11:46→23:19)
[2022-06-29] MEDS: QUEtiapine Fumarate 25 MG TABLET PO SCH (21:07)
[2022-06-30] MEDS: Insulin LISPRO 300 UNITS/3 ML VIAL SUBQ SCH ×7 (01:49→23:02)
[2022-06-30] MEDS: Ipratropium Neb 0.5 MG NEBULIZER IH SCH ×4 (03:39→22:11)
[2022-06-30 03:49] LABS: Hematocrit 24.5 % (35.3-44.9); Hemoglobin 7.9 g/dL (11.5-15.4); Mean Corpuscular HGB Conc 32.2 g/dL (31.6-35.5); Mean Corpuscular Hemoglobin 31.5 pg (28.0-33.3); Mean Corpuscular Volume 97.6 fL (83.0-100.0); Mean Platelet Volume 10.1 fL (9.4-12.4); Platelet Count 417 K/mcL (140-400); Red Blood Count 2.51 M/mcL (3.82-4.97); Red Cell Distribution Width 16.6 % (11.5-14.5); White Blood Count 9.7 K/mcL (4.3-11.1)
[2022-06-30 04:08] LABS: Calcium 9.2 mg/dL (8.6-10.3); Potassium 3.1 mEq/L (3.5-5.1)
[2022-06-30] MEDS: Nicotine 21 MG PATCH.TD24 TD PRN (07:47)
[2022-06-30] MEDS: Acetaminophen 325 MG TABLET PO PRN (07:48)
[2022-06-30] MEDS: Furosemide 40 MG/4 ML VIAL IVP SCH ×2 (07:48→20:00)
[2022-06-30] MEDS: Thiamine (B-1) 100 MG in 0.9 % Sodium Chloride 50 ML IVPB SCH (09:54)
[2022-06-30] MEDS: *HR* Heparin 5,000 UNIT/ML VIAL SQ SCH ×2 (12:47→23:02)
[2022-06-30] MEDS: *HR* HYDROcodone/Acet 5/325 mg TABLET PO PRN (12:47)
[2022-06-30] MEDS: Nystatin POWDER 30 GM BOTTLE TP SCH ×3 (12:47→20:00)
[2022-06-30] MEDS: Gabapentin 100 MG CAPSULE PO SCH ×2 (15:45→20:00)
[2022-06-30] MEDS: Fat Emulsion 250 ML IVPB SCH (17:10)
[2022-06-30] MEDS: QUEtiapine Fumarate 25 MG TABLET PO SCH (20:00)
[2022-07-01] MEDS: Insulin LISPRO 300 UNITS/3 ML VIAL SUBQ SCH ×5 (03:01→19:36)
[2022-07-01] MEDS: Ipratropium Neb 0.5 MG NEBULIZER IH SCH ×4 (04:24→22:26)
[2022-07-01 04:57] LABS: Hematocrit 26.8 % (35.3-44.9); Hemoglobin 8.4 g/dL (11.5-15.4); Mean Corpuscular HGB Conc 31.3 g/dL (31.6-35.5); Mean Corpuscular Hemoglobin 30.9 pg (28.0-33.3); Mean Corpuscular Volume 98.5 fL (83.0-100.0); Mean Platelet Volume 10.2 fL (9.4-12.4); Platelet Count 466 K/mcL (140-400); Red Blood Count 2.72 M/mcL (3.82-4.97); Red Cell Distribution Width 16.6 % (11.5-14.5); White Blood Count 9.2 K/mcL (4.3-11.1)
[2022-07-01 05:13] LABS: Calcium 9.5 mg/dL (8.6-10.3); Potassium 2.8 mEq/L (3.5-5.1)
[2022-07-01] MEDS ORDERED: Potassium Chloride Elixir 20 MEQ/15 ML UDC PO ONE (06:02)
[2022-07-01] MEDS ORDERED: Magnesium Sulfate 1 GM/102 ML PIGGYBACK IVPB ONE (06:03)
[2022-07-01 06:07] LABS: Cholesterol,Body Fluid 32 mg/dL; Fluid Source for Cholesterol PLEURAL FLUID
[2022-07-01 06:13] LABS: Magnesium 1.8 mg/dL (1.6-2.6)
[2022-07-01] MEDS: Gabapentin 100 MG CAPSULE PO SCH ×3 (09:35→21:20)
[2022-07-01] MEDS: Furosemide 40 MG/4 ML VIAL IVP SCH ×2 (09:36→21:27)
[2022-07-01] MEDS: Nystatin POWDER 30 GM BOTTLE TP SCH ×3 (11:43→21:22)
[2022-07-01] MEDS: Thiamine (B-1) 100 MG in 0.9 % Sodium Chloride 50 ML IVPB SCH (11:45)
[2022-07-01] MEDS: *HR* Heparin 5,000 UNIT/ML VIAL SQ SCH (12:51)
[2022-07-01] MEDS ORDERED: 0.9 % Sodium Chloride 250 ML IV ONE ×2 (13:19→15:23)
[2022-07-01 16:30] LABS: Magnesium 2.8 mg/dL (1.6-2.6); Potassium 3.9 mEq/L (3.5-5.1)
[2022-07-01] MEDS: QUEtiapine Fumarate 25 MG TABLET PO SCH (21:20)
[2022-07-01] MEDS: *HR* HYDROcodone/Acet 5/325 mg TABLET PO PRN (21:41)
[2022-07-02] MEDS: *HR* Heparin 5,000 UNIT/ML VIAL SQ SCH ×2 (00:31→12:42)
[2022-07-02 02:14] LABS: Hematocrit 25.2 % (35.3-44.9); Hemoglobin 8.1 g/dL (11.5-15.4); Mean Corpuscular HGB Conc 32.1 g/dL (31.6-35.5); Mean Corpuscular Hemoglobin 31.4 pg (28.0-33.3); Mean Corpuscular Volume 97.7 fL (83.0-100.0); Mean Platelet Volume 9.9 fL (9.4-12.4); Platelet Count 421 K/mcL (140-400); Red Blood Count 2.58 M/mcL (3.82-4.97); Red Cell Distribution Width 16.6 % (11.5-14.5); White Blood Count 9.8 K/mcL (4.3-11.1)
[2022-07-02] MEDS: Ipratropium Neb 0.5 MG NEBULIZER IH SCH ×2 (04:02→11:10)
[2022-07-02] MEDS: Furosemide 40 MG/4 ML VIAL IVP SCH ×2 (08:44→21:06)
[2022-07-02] MEDS: Gabapentin 100 MG CAPSULE PO SCH ×3 (08:46→21:07)
[2022-07-02] MEDS: Nystatin POWDER 30 GM BOTTLE TP SCH ×3 (08:46→21:08)
[2022-07-02] MEDS: Insulin LISPRO 300 UNITS/3 ML VIAL SUBQ SCH ×4 (08:47→19:38)
[2022-07-02] MEDS: Thiamine (B-1) 100 MG in 0.9 % Sodium Chloride 50 ML IVPB SCH (08:55)
[2022-07-02] MEDS ORDERED: Ipratropium Neb 0.5 MG NEBULIZER IH PRN (11:10)
[2022-07-02] MEDS: *HR* HYDROcodone/Acet 5/325 mg TABLET PO PRN (12:42)
[2022-07-02] MEDS: QUEtiapine Fumarate 25 MG TABLET PO SCH (21:07)
[2022-07-03] MEDS: *HR* Heparin 5,000 UNIT/ML VIAL SQ SCH ×2 (00:47→11:59)
[2022-07-03 06:56] LABS: Basophils # 0.1 K/mcL (0.0-0.2); Eosinophils # 0.4 K/mcL (0.0-0.6); Eosinophils % 3.3 %; Hematocrit 26.5 % (35.3-44.9); Hemoglobin 8.5 g/dL (11.5-15.4); Immature Granulocytes % 0.7 % (0-4); Lymphocytes # 2.5 K/mcL (0.6-4.6); Lymphocytes % 21.3 %; Mean Corpuscular HGB Conc 32.1 g/dL (31.6-35.5); Mean Corpuscular Hemoglobin 31.5 pg (28.0-33.3); Mean Corpuscular Volume 98.1 fL (83.0-100.0); Mean Platelet Volume 10.2 fL (9.4-12.4); Monocytes # 0.8 K/mcL (0.0-1.3); Monocytes % 6.6 %; Neutrophils # 7.8 K/mcL (1.6-8.9); Platelet Count 450 K/mcL (140-400); Red Cell Distribution Width 16.6 % (11.5-14.5); Segmented Neutrophils % 67.1 %; White Blood Count 11.6 K/mcL (4.3-11.1)
[2022-07-03 07:00] LABS: Calcium 9.7 mg/dL (8.6-10.3)
[2022-07-03] MEDS: Insulin LISPRO 300 UNITS/3 ML VIAL SUBQ SCH ×4 (08:19→21:13)
[2022-07-03] MEDS: Nystatin POWDER 30 GM BOTTLE TP SCH ×3 (08:20→21:21)
[2022-07-03] MEDS: Gabapentin 100 MG CAPSULE PO SCH ×3 (08:20→21:13)
[2022-07-03] MEDS: Furosemide 40 MG/4 ML VIAL IVP SCH ×2 (08:23→21:13)
[2022-07-03] MEDS: Thiamine (B-1) 100 MG in 0.9 % Sodium Chloride 50 ML IVPB SCH (08:35)
[2022-07-03] MEDS: *HR* HYDROcodone/Acet 5/325 mg TABLET PO PRN (11:58)
[2022-07-03] MEDS: Acetaminophen 325 MG TABLET PO PRN (16:45)
[2022-07-03] MEDS: QUEtiapine Fumarate 25 MG TABLET PO SCH (21:12)
[2022-07-04] MEDS: *HR* Heparin 5,000 UNIT/ML VIAL SQ SCH ×2 (01:16→11:37)
[2022-07-04 05:37] LABS: Calcium 9.7 mg/dL (8.6-10.3); Magnesium 1.4 mg/dL (1.6-2.6); Potassium 3.3 mEq/L (3.5-5.1)
[2022-07-04] MEDS: Nystatin POWDER 30 GM BOTTLE TP SCH ×3 (07:53→19:46)
[2022-07-04] MEDS: Insulin LISPRO 300 UNITS/3 ML VIAL SUBQ SCH ×4 (07:53→21:09)
[2022-07-04] MEDS: Gabapentin 100 MG CAPSULE PO SCH ×3 (08:02→19:45)
[2022-07-04] MEDS: *HR* HYDROcodone/Acet 5/325 mg TABLET PO PRN ×2 (08:02→14:08)
[2022-07-04] MEDS: Thiamine (B-1) 100 MG in 0.9 % Sodium Chloride 50 ML IVPB SCH (08:07)
[2022-07-04] MEDS: Furosemide 40 MG TABLET PO SCH ×2 (08:08→16:59)
[2022-07-04] MEDS ORDERED: 0.9 % Sodium Chloride 500 ML IVC ONE (16:56)
[2022-07-04] MEDS ORDERED: Furosemide 40 MG TABLET PO ONE (16:58)
[2022-07-04] MEDS: QUEtiapine Fumarate 25 MG TABLET PO SCH (19:45)
[2022-07-05] MEDS: *HR* Heparin 5,000 UNIT/ML VIAL SQ SCH ×2 (00:24→11:47)
[2022-07-05 05:32] LABS: VBG HCO3 25 mEq/L (21-27); VBG PCO2 39 mmHg (41-51); VBG PH 7.41 pH Units (7.32-7.42); VBG PO2 60 mmHg (25-50)
[2022-07-05] MEDS ORDERED: *HR* Metoprolol 5 MG/5 ML VIAL IVP ONE (06:10)
[2022-07-05 06:25] LABS: Calcium 9.8 mg/dL (8.6-10.3); Magnesium 2.6 mg/dL (1.6-2.6); Potassium 3.9 mEq/L (3.5-5.1)
[2022-07-05] MEDS: Insulin LISPRO 300 UNITS/3 ML VIAL SUBQ SCH ×4 (08:43→20:05)
[2022-07-05] MEDS: Gabapentin 100 MG CAPSULE PO SCH ×3 (09:33→20:09)
[2022-07-05] MEDS: Thiamine (B-1) 100 MG TABLET PO SCH (09:33)
[2022-07-05] MEDS: Furosemide 40 MG TABLET PO SCH ×2 (09:33→17:34)
[2022-07-05] MEDS: Nystatin POWDER 30 GM BOTTLE TP SCH ×3 (09:33→20:12)
[2022-07-05] MEDS ORDERED: 0.9 % Sodium Chloride 250 ML IV ONE (10:22)
[2022-07-05] MEDS: *HR* HYDROcodone/Acet 5/325 mg TABLET PO PRN (10:49)
[2022-07-05] MEDS: QUEtiapine Fumarate 25 MG TABLET PO SCH (20:09)
[2022-07-06] MEDS: *HR* Heparin 5,000 UNIT/ML VIAL SQ SCH ×2 (00:35→13:01)
[2022-07-06 04:58] LABS: Calcium 9.6 mg/dL (8.6-10.3); Potassium 3.7 mEq/L (3.5-5.1)
[2022-07-06] MEDS ORDERED: Albumin 25% 25gram/100mL 25 GM/100 ML IV.SOLN IVPB ONE (05:11)
[2022-07-06] MEDS ORDERED: 0.9 % Sodium Chloride 250 ML IV ONE ×2 (08:31→14:10)
[2022-07-06] MEDS: Furosemide 40 MG TABLET PO SCH (09:16)
[2022-07-06] MEDS: Insulin LISPRO 300 UNITS/3 ML VIAL SUBQ SCH ×4 (09:21→20:38)
[2022-07-06] MEDS: Thiamine (B-1) 100 MG TABLET PO SCH (09:22)
[2022-07-06] MEDS: Gabapentin 100 MG CAPSULE PO SCH ×3 (09:22→20:58)
[2022-07-06] MEDS: Nystatin POWDER 30 GM BOTTLE TP SCH ×3 (09:25→21:23)
[2022-07-06] MEDS: QUEtiapine Fumarate 25 MG TABLET PO SCH (20:58)
[2022-07-07] MEDS: *HR* Heparin 5,000 UNIT/ML VIAL SQ SCH ×2 (01:05→12:20)
[2022-07-07 01:41] LABS: Calcium 9.6 mg/dL (8.6-10.3); Potassium 3.9 mEq/L (3.5-5.1)
[2022-07-07] MEDS: Insulin LISPRO 300 UNITS/3 ML VIAL SUBQ SCH ×3 (08:39→16:51)
[2022-07-07] MEDS: Thiamine (B-1) 100 MG TABLET PO SCH (08:47)
[2022-07-07] MEDS: Gabapentin 100 MG CAPSULE PO SCH ×2 (08:47→16:49)
[2022-07-07] MEDS: Nystatin POWDER 30 GM BOTTLE TP SCH ×2 (08:48→16:51)
[2022-07-07] MEDS ORDERED: Furosemide 20 MG/2 ML VIAL IVP SCH (09:00)
[2022-07-07 11:46] LABS: Estimated Average Glucose 105 mg/dl; Hemoglobin A1C 5.3 %
[2022-07-07] MEDS: *HR* HYDROcodone/Acet 5/325 mg TABLET PO PRN (16:49)
== END 2022-07-07 19:22 | DRG 133 ==
LOC: 2NNU → SUATTDRO 06-11 13:07 → ICNU 06-13 13:29 → 2NNU 06-17 22:01 → 3BNU 07-01 14:38
PROVIDERS: ADMIT Internal Medicine; ATTEND Internal Medicine